=== PATIENT | male | born 1950 | race Caucasian/White ===

== ENCOUNTER 2022-04-18 10:18 | Outpatient (CLI) | payer MEDICARE, BC, SELFPAY | END 2022-04-18 10:19 | disposition home or self-care (01) | PROVIDERS: PCP Physician Assistant Medical; Visit Provider Orthopaedic Surgery | DX: Z01.818 Encounter for other preprocedural examination (principal) | CPT/HCPCS: 36415; 86850; 86900; 86901 ==

== ENCOUNTER 2022-04-20 10:26 | Day surgery (SDC) | payer MEDICARE, BC, SELFPAY ==
[2022-04-15] MEDS: CEFAZOLIN 2 GM INJ IVP (12:25)
[2022-04-20] VITALS (23 sets, daily range): BP systolic 106–137; BP diastolic 67–94; PULSE 47–76; RESP 10–18; TEMP 36.2–37.1; O2SAT 93–99; BMI 30.4
[2022-04-20] MEDS: ACETAMINOPHEN 500 MG TABLET 1000 MG PO ×3 (11:10→23:45)
[2022-04-20] MEDS: CELECOXIB 200 MG CAPSULE PO ×2 (11:10→21:06)
[2022-04-20] MEDS: OXYCODONE (CR) 10 MG TAB.ER.12H PO (11:10)
[2022-04-20] MEDS: LACTATED RINGERS 1000 ML 1,000 ML 100 ML IV ×2 (11:17→12:55)
[2022-04-20] MEDS: SODIUM CHLORIDE 0.9 % (FLUSH) 10 ML SYRINGE IVF (11:17)
--- NOTE | 2022-04-20 12:06 | SUR.PREOP ---
TIME?OUT:?1205 PT/Keila DEWEY RN/Brenda BANG MDA?VERIFICATION?OF?SURGICAL?SITE,?PROCEDURE,?AND?CONSENT OBTAINED?PRIOR?TO?INVASIVE?PROCEDURE.
[2022-04-20] MEDS: fentaNYL 100 MCG/2 ML inj IVP (12:08)
[2022-04-20] MEDS: MIDAZOLAM HCL 1 MG/ML inj IVP (12:08)
--- NOTE | 2022-04-20 12:32 | CRLHL7_ITS ---
For Patients: As a result of the Cures Act, medical imaging exams and procedure reports are released immediately into your electronic medical record. You may view this report before your referring provider. If you have questions, please contact your health care provider. Indication: Hip replacement surgery Technique: AP hip fluoroscopic images. Fluoroscopy time 43.4 seconds. Findings/Impression: Hardware from a left total hip arthroplasty is in satisfactory position. Dictated by Ottoniel Dior MD @ 04/20/2022 2:55:03 PM (Electronically Signed)
--- NOTE | 2022-04-20 13:38 | CRLHL7_ITS ---
For Patients: As a result of the Cures Act, medical imaging exams and procedure reports are released immediately into your electronic medical record. You may view this report before your referring provider. If you have questions, please contact your health care provider. Indication: Hip replacement surgery Technique: AP hip centered pelvis and lateral view left hip. Findings/Impression: Hardware from a left total hip arthroplasty is in satisfactory position. Bone alignment is normal. No sign of acute fracture. Postop changes are within normal limits. Dictated by Ottoniel Dior MD @ 04/20/2022 3:09:51 PM (Electronically Signed)
--- NOTE | 2022-04-20 13:40 | PM.ORPRC ---
Procedure Note Date of procedure: 04/20/22 Procedure: SURGEON: Remigio Calderon MD SEATING CAPTAIN: Betty Trujillo PA-C, FAUSTINO Galvan PREOPERATIVE DIAGNOSIS: Left hip osteoarthritis POSTOPERATIVE DIAGNOSIS: Left hip osteoarthritis NAME OF OPERATION: Left total hip arthroplasty IMPLANTS: 1. [employer] [place] # 58 sector ingrowth cup 2. 36 x 58 +4 neutral polyethylene 3. Actis # 9 standard collared ingrowth stem 4. 36 + 1.5 ceramic femoral head ANESTHESIA: General ESTIMATED BLOOD LOSS: 300 cc COMPLICATIONS: None SPECIMENS: None DRAINS: None PREOPERATIVE ANTIBIOTICS: Ancef 2 grams INDICATIONS: The patient is a 72-year-old with a longstanding history of severe, unrelenting left hip pain secondary to end-stage left hip osteoarthritis. Despite appropriate nonoperative management, including activity modification, use of an assist device, anti-inflammatories, [id number] pain medication, physical therapy and injections, they continue to have pain and disability. Operative intervention was offered. The risks, benefits and expected outcomes were discussed in detail. These included but were not limited to: Infection, bleeding, injury to blood vessel or nerve, venous thromboembolism. All questions were answered to their satisfaction. Use of an wet process assistant head miller was necessary throughout the case for patient positioning and safety, soft tissue retraction and closure. PROCEDURE: The patient was placed supine on the Sheldon table. General anesthesia was administered. The wet process assistant head miller made sure the patient was properly positioned. The left hip was prepped and draped in the usual sterile fashion. The image intensifier was brought in for a perfect AP pelvis and a perfect double tear drop AP view of each hip which were used for intraoperative templating with our fluoroscopic guide. An oblique incision was made 3 cm distal and 3 cm lateral to the anterior superior iliac spine. The wet process assistant head miller retracted the soft tissues to protect them. Subcutaneous dissection was taken with electrocautery to the superficial fascia. The fascia was divided in line with the incision. Blunt dissection was carried medially to the tensor fascia rosa elena and sartorius interval. Deep dissection was carried with electrocautery. The circumflex vessels were cauterized and divided. The capsule was exposed and then divided in a T-fashion, tagged with #1 Ethibond sutures. Retractors were placed in the joint, held by the wet process assistant head miller. The corkscrew was placed in the femoral head. The neck cut was made in the subcapital region. We made a second neck cut more distal. The napkin ring of bone was removed. The femoral head was removed intact. Acetabular retractors were placed, held by the wet process assistant head miller. The labrum was sharply debrided. The capsule was released. The 43 mm reamer was used to the true medial wall. We then enlarged in 2 mm increments using the image intensifier for our reamer placement. We impacted the cup which had excellent purchase. We placed the hole eliminator and the polyethylene. Attention was then turned to the proximal femur. The limb was placed in 140 degrees of external rotation, maximum extension and adduction. A significant amount of time was spent releasing the capsule to allow us to deliver the femur into the wound and complete the femoral side safely. Retractors were held by the wet process assistant head miller throughout the femoral preparation. The boxer operator and canal finder were used. Broaches were used to a stable size. The calcar reamer was used. Trial components were placed. The hip was reduced and was found to be stable with appropriate soft tissue tension. Length and offset had been nicely restored using the image intensifier and our fluoroscopic guide. Trial components were removed. The stem was impacted. We placed the femoral head. Again, the hip was reduced and was found to be stable with appropriate soft tissue tension. Length and offset had been nicely restored. The wet process assistant head miller did a three minute dilute Betadine solution soak. The wet process assistant head miller irrigated the wound with 3 liters of normal saline via pulse lavage. The wet process assistant head miller repaired the anterior capsule with a #1 Vicryl and our previously placed Ethibond sutures. The wet process assistant head miller closed the fascia over the tensor fascia rosa elena with a #1 PDO Stratafix, subcutaneous tissues with 2-0 Vicryl, skin with a running 3-0 Stratafix and glue. A dry dressing was applied by the wet process assistant head miller. Sponge and needle counts were correct x 2. The patient tolerated the procedure well; there were no apparent complications. They were awakened and extubated in the operating room, sent to the Post-Anesthesia Care Unit in satisfactory condition. PLAN: 1. The patient will be mobilized with physical therapy, weight-bearing as tolerates 2. Xarelto x 5 days then aspirin x 30 days will be used for DVT prophylaxis 3. The patient will be discharged once medically appropriate
--- NOTE | 2022-04-20 14:25 | W.ANESCHARGE ---
Anesthesia Charges Start Date/Time Anesthesia Start Date: 04/20/22 Anesthesia Start Time: 12:13 Stop Date/Time Anesthesia Stop Date: 04/20/22 Anesthesia Stop Time: 14:18 Summary Emergency: No Extremes of Age: Over 69-CPT 93630
--- NOTE | 2022-04-20 14:43 | SUR.PHASEI ---
PATIENT MEETS PACU DISCHARGE CRITERIA
--- NOTE | 2022-04-20 14:54 | P.NB_ITS ---
Nerve Block Nerve Block Date Seen: 04/20/22 Type of block requested by surgeon for post-operative analgesia: JOSE LUIS/LFCN Side: left Time out performed: Yes Verification of patient name: Yes Verification of date of : Yes Site marking: site marked Name of person performing procedure: Ciro Continuous monitoring Was continuous monitoring of O2 sat, B/P, cardiac nurse practitioner, recorded every 15 minutes?: Yes Procedure Checklist: sterile prep, needles and gloves Ultrasound guided. Images saved: Yes Medications given in 5ml increments after negative aspiration: Ropivicaine %: 0.5 mL: 30 Needle gauge: 20 Decadron (mg): 10 Precedex (mcg): 25 Patient tolerated procedure well: Yes Additional comments: Needle noted adjacent to nerve Block Charges Block Charge (with Pro Fee): Other Periph Nerve Block Use of Ultrasound Machine for Block: Yes- US Guidance/pain block
--- NOTE | 2022-04-20 14:54 | W.ANESCHARGE ---
Anesthesia Charges Start Date/Time Anesthesia Start Date: 04/20/22 Anesthesia Start Time: 12:13 Stop Date/Time Anesthesia Stop Date: 04/20/22 Anesthesia Stop Time: 14:18 Summary Emergency: No Extremes of Age: Over 69-CPT 40749
[2022-04-20] MEDS: LACTATED RINGERS 1000 ML 1,000 ML 75 ML IV (15:19)
[2022-04-20] MEDS: HYDROmorphone 0.5 mg/0.5 ml inj IVP (15:25)
[2022-04-20] MEDS: OXYCODONE 5 MG TABLET PO (17:27)
[2022-04-20] MEDS: CEFAZOLIN 2 GM in 0.9 % SODIUM CHLORIDE Mini-bag 100 ML IVPB (18:14)
[2022-04-20] MEDS: SENNOSIDES 1 TAB TABLET 2 TAB PO (21:06)
[2022-04-20] MEDS: 0.9 % SODIUM CHLORIDE 500 ML IV (21:42)
--- NOTE | 2022-04-20 23:08 | PC.NURSE ---
End of Shift: Patient pleasant and cooperative. Afebrile. Dressing to left hip C/D/I. CMS intact. Rating pain up to 5/10 and PRN Dilaudid and oxycodone each given x1. Tolerating regular diet with no nausea. Up to bathroom and chair with 1 assist, walker and gait belt. Attempted to void x2. Bladder scanned for 110 mL. 500 cc bolus hung at 2140.
--- NOTE | 2022-04-20 23:22 | P.IMCN_ITS ---
Date of Consult Patient: Yvonne Patient Consult date: 04/20/22 Requesting Physician: Orthopedics Primary Care Provider: Love Juan PA-C Consult Narrative Reason for consult: Assist with postop management of hypertension. Narrative: Shine Chowdhury is a 72 year old man with end-stage left Sagastume arthrosis who undergoes elective left total hip arthroplasty today. No obvious complications. Estimated blood loss 300 mL. Pain well controlled. Review of Systems Status of ROS: Reports: 6 or more systems reviewed and unremarkable except as noted in History and below Narrative: Denies angina, anginal equivalent, syncope, near syncope. Denies dyspnea. Denies orthopnea or paroxysmal nocturnal dyspnea. Denies palpitations. Denies cough or shortness of breath. Denies nausea vomiting. 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 Designates his brother, Melo, as his power of employee benefits attorney for health should that be required. Indicates that his girlfriend, Idalia, is the secondary power of employee benefits attorney for health. Clearly indicates he has a DNR DNI resuscitation status. He tells me he drinks a case of beer a week, usually 5-6 beers, sometimes more, on , Tuesday, Tuesday, and Tuesday of every week. Denies alcohol withdrawals. Denies use of any other street or recreational drugs. Does not use tobacco products. [facility] Medical History (Updated 04/20/22 @ 23:30 by Toney Junior MD) Alcohol abuse Benign prostatic hyperplasia Hypertension Osteoarthritis of left hip Skin cancer, basal cell Surgical History (Updated 04/20/22 @ 23:30 by Toney Junior MD) H/O transurethral resection of prostate Family History Father Colon cancer S/P triple vessel bypass Mother Heart attack Sister Tremor Brother History of total knee replacement Social History Smoking Status: Never smoker How often do you have a drink containing alcohol: 4 or more times a week Alcohol type: beer How many standard drinks containing alcohol do you have on a typical day: 5 or 6 How often do you have six or more drinks on one occasion: Weekly AUDIT-C Alcohol total score: 9 Non-prescribed substance use: denies use Non-prescribed substance use details: tylenol Caffeine: Yes (coffee, 4-6 cups/day) Meds Home Medications and Allergies Home Medications Medication Instructions Recorded Confirmed Type lisinopril 20 1 tab PO DAILY 04/19/22 04/20/22 History mg-hydrochlorothiazide 12.5 mg tablet Allergies Allergy/AdvReac Type Severity Reaction Status Date / Time No Known Allergies Allergy Unknown Verified 04/20/22 11:01 Exam Narrative: Exam Narrative: Awake, alert, oriented to self, place, time, situation. Articulate and cooperative. No acute distress. Hearing is preserved. Vision is grossly intact. Oropharynx is benign without any lesions. Lungs are clear to auscultation, without wheezing, rhonchi, or rales. No CVA tenderness. Heart tones with regular rhythm, normal S1-S2. Grade 2/6 systolic murmur left lower sternal border. No gallop or rub. Abdomen with active bowel sounds, soft, nontender. Moves all 4 extremities. Const: Vital Signs, click to edit/add: Vital Signs - 24 hr 04/20/22 11:21 04/20/22 12:05 04/20/22 12:11 Temperature 98 F Pulse Rate 68 58 L 51 L Pulse Rate [Pulse Oximeter] Respiratory Rate 18 16 16 Blood Pressure 131/84 136/83 107/67 Blood Pressure [Le ft Arm] Blood Pressure [Ri ght Arm] Pulse Oximetry 97 99 96 Oxygen Delivery Me thod Room Air Nasal Cannula Nasal Cannula Oxygen Flow Rate 2 2 04/20/22 14:14 04/20/22 14:20 04/20/22 14:25 Temperature 97.5 F L Pulse Rate 52 L 50 L 50 L Pulse Rate [Pulse Oximeter] Respiratory Rate 10 L 12 11 L Blood Pressure 137/77 122/78 116/77 Blood Pressure [Le ft Arm] Blood Pressure [Ri ght Arm] Pulse Oximetry 94 95 95 Oxygen Delivery Me thod Room Air Oxygen Flow Rate 04/20/22 14:30 04/20/22 14:35 04/20/22 14:40 Temperature 97.8 F Pulse Rate 54 L 51 L 57 L Pulse Rate [Pulse Oximeter] Respiratory Rate 12 11 L 12 Blood Pressure 126/79 132/81 134/82 Blood Pressure [Le ft Arm] Blood Pressure [Ri ght Arm] Pulse Oximetry 95 97 93 Oxygen Delivery Me thod Oxygen Flow Rate 04/20/22 14:45 04/20/22 14:50 04/20/22 15:00 Temperature 97.1 F L Pulse Rate 51 L 47 L Pulse Rate [Pulse Oximeter] Respiratory Rate 12 12 16 Blood Pressure 133/91 H 110/70 Blood Pressure [Le ft Arm] Blood Pressure [Ri ght Arm] 133/83 Pulse Oximetry 95 95 98 Oxygen Delivery Me thod Room Air Oxygen Flow Rate 04/20/22 15:15 04/20/22 15:30 04/20/22 15:45 Temperature Pulse Rate Pulse Rate [Pulse Oximeter] 59 L 50 L 61 Respiratory Rate 16 16 16 Blood Pressure Blood Pressure [Le ft Arm] 131/86 Blood Pressure [Ri ght Arm] 134/77 129/78 Pulse Oximetry 96 96 97 Oxygen Delivery Me thod Room Air Room Air Room Air Oxygen Flow Rate 04/20/22 16:00 04/20/22 16:30 04/20/22 17:00 Temperature 98.7 F Pulse Rate Pulse Rate [Pulse Oximeter] 57 L 60 62 Respiratory Rate 16 16 16 Blood Pressure Blood Pressure [Le ft Arm] Blood Pressure [Ri ght Arm] 106/92 H 122/78 126/94 H Pulse Oximetry 99 98 98 Oxygen Delivery Me thod Room Air Room Air Room Air Oxygen Flow Rate 04/20/22 18:00 04/20/22 19:00 04/20/22 20:00 Temperature 98.4 F 98.2 F Pulse Rate Pulse Rate [Pulse Oximeter] 67 74 67 Respiratory Rate 16 16 16 Blood Pressure Blood Pressure [Le ft Arm] Blood Pressure [Ri ght Arm] 120/83 112/77 115/86 Pulse Oximetry 98 97 97 Oxygen Delivery Me thod Room Air Room Air Room Air Oxygen Flow Rate 04/20/22 21:00 04/20/22 15:00 Temperature 98.3 F 97.1 F L Pulse Rate 55 L Pulse Rate [Pulse Oximeter] 76 Respiratory Rate 16 18 Blood Pressure Blood Pressure [Le ft Arm] 133/83 Blood Pressure [Ri ght Arm] 121/85 Pulse Oximetry 97 Oxygen Delivery Me thod Room Air Room Air Oxygen Flow Rate Documenting provider has reviewed patient's vital signs: yes Assessment and Plan Assessment and plan (1) Osteoarthritis of left hip: Status: Acute (2) Status post left hip replacement: Status: Acute (3) Hypertension: Status: Acute (4) Alcohol abuse: Status: Acute Plan 1. Reviewed my impression with the patient. Answered his questions to satisfaction. 2. Hold his antihypertensive for now. Consider restarting when his blood pressure is appropriate. 3. Agree with perioperative venous thromboembolism prophylaxis plans. 4. Agree with perioperative antibiotic prophylaxis. 5. Will monitor him for possible signs and symptoms of alcohol withdrawal. 6. Did discuss with patient and his girlfriend the idea that the amount of alcohol he drinks is dangerous for him. 7. Will follow with Orthopedic surgery while orthopedic surgery has him in the hospital.
[2022-04-21] MEDS: CEFAZOLIN 2 GM in 0.9 % SODIUM CHLORIDE Mini-bag 100 ML IVPB ×2 (02:14→10:01)
[2022-04-21 02:24] VITALS: BP 153/82; PULSE 62; RESP 20; TEMP 36.6; O2SAT 98
[2022-04-21] MEDS: ACETAMINOPHEN 500 MG TABLET 1000 MG PO (06:25)
[2022-04-21] MEDS: LACTATED RINGERS 1000 ML 1,000 ML 75 ML IV (06:26)
--- NOTE | 2022-04-21 06:59 | PC.NURSE ---
: SBA?with gb and walker. No c/o pain. 575?light humberto urine output this shift. (500 Bolus Given Prev Shift). Bladder scanned post void, 30mL. IV fluids running at 75mL. Dressing to hip CDI, active ice placed. VSS. Afebrile.
[2022-04-21 07:00] VITALS: BP 128/79; PULSE 65; RESP 18; TEMP 36.7; O2SAT 98
[2022-04-21 08:39] LABS: Basophils Percent Auto 0.1 % (0.0-3.0); Hematocrit 36.1 % (37.0-53.0); Hemoglobin* 12.3 gm/dL (13.5-17.5); Immature Granulocytes Abs Auto 0.03 K/uL (0.00-0.30); Lymphocytes Percent Auto 6.3 % (20-44); Mean Corpuscular HGB Conc 34 gm/dL (32-36); Mean Corpuscular Hemoglobin 32 pg (26-34); Mean Corpuscular Volume 93 fL (80-100); Monocytes Percent Auto 10.5 % (0.0-11.0); Neutrophils Percent Auto 82.9 % (42.0-72.0); Platelet Count* 225 K/uL (140-440); Red Blood Count 3.88 m/uL (4.30-5.90); White Blood Count* 13.56 K/uL (4.50-11.00)
[2022-04-21 08:49] LABS: Slide Review Reflex No
[2022-04-21 09:01] LABS: Potassium* 4.1 mmol/L (3.6-5.1); Sodium* 131 mmol/L (135-149)
[2022-04-21 09:04] LABS: Blood Urea Nitrogen* 17 mg/dL (7-30); Creatinine* 0.6 mg/dL (0.5-1.5); Est. Creatinine Clearance* 63.65; Estimated Glomerular Filt Rate 102 ml/min
[2022-04-21] MEDS: CELECOXIB 200 MG CAPSULE PO (09:05)
[2022-04-21] MEDS: SENNOSIDES 1 TAB TABLET 2 TAB PO (09:06)
[2022-04-21] MEDS: RIVAROXABAN 10 MG TABLET PO (09:06)
--- NOTE | 2022-04-21 09:54 | PM.ORPN ---
Subjective Subjective Time Seen by Provider: 07:45 Date Seen: 04/21/22 Principal diagnosis: Status post left hip replacement Interval history: Shine is comfortable this morning in his hospital bed. He will discharge to home today if physical therapy goes well. Ortho Exam Narrative Exam Narrative: Alert and oriented x3. Patient is in no acute distress. Converses without labored breathing. Hearing is grossly intact. Examination of the left hip shows mild soft tissue edema about the hip. No ecchymosis. Dressing is intact. There is no drainage. CMS is intact left lower extremity. Bilateral calves are soft and nontender. Const Vital Signs, click to edit/add: Vital Signs - 24 hr 04/20/22 11:21 04/20/22 12:05 04/20/22 12:11 Temperature 98 F Pulse Rate 68 58 L 51 L Pulse Rate [Left Dorsalis Pedis] Pulse Rate [Pulse Oximeter] Respiratory Rate 18 16 16 Blood Pressure 131/84 136/83 107/67 Blood Pressure [Left Arm] Blood Pressure [Right Arm] Pulse Oximetry 97 99 96 Oxygen Delivery Method Room Air Nasal Cannula Nasal Cannula Oxygen Flow Rate 2 2 04/20/22 14:14 04/20/22 14:20 04/20/22 14:25 Temperature 97.5 F L Pulse Rate 52 L 50 L 50 L Pulse Rate [Left Dorsalis Pedis] Pulse Rate [Pulse Oximeter] Respiratory Rate 10 L 12 11 L Blood Pressure 137/77 122/78 116/77 Blood Pressure [Left Arm] Blood Pressure [Right Arm] Pulse Oximetry 94 95 95 Oxygen Delivery Method Room Air Oxygen Flow Rate 04/20/22 14:30 04/20/22 14:35 04/20/22 14:40 Temperature 97.8 F Pulse Rate 54 L 51 L 57 L Pulse Rate [Left Dorsalis Pedis] Pulse Rate [Pulse Oximeter] Respiratory Rate 12 11 L 12 Blood Pressure 126/79 132/81 134/82 Blood Pressure [Left Arm] Blood Pressure [Right Arm] Pulse Oximetry 95 97 93 Oxygen Delivery Method Oxygen Flow Rate 04/20/22 14:45 04/20/22 14:50 04/20/22 15:00 Temperature 97.1 F L Pulse Rate 51 L 47 L Pulse Rate [Left Dorsalis Pedis] Pulse Rate [Pulse Oximeter] Respiratory Rate 12 12 16 Blood Pressure 133/91 H 110/70 Blood Pressure [Left Arm] Blood Pressure [Right Arm] 133/83 Pulse Oximetry 95 95 98 Oxygen Delivery Method Room Air Oxygen Flow Rate 04/20/22 15:15 04/20/22 15:30 04/20/22 15:45 Temperature Pulse Rate Pulse Rate [Left Dorsalis Pedis] Pulse Rate [Pulse Oximeter] 59 L 50 L 61 Respiratory Rate 16 16 16 Blood Pressure Blood Pressure [Left Arm] 131/86 Blood Pressure [Right Arm] 134/77 129/78 Pulse Oximetry 96 96 97 Oxygen Delivery Method Room Air Room Air Room Air Oxygen Flow Rate 04/20/22 16:00 04/20/22 16:30 04/20/22 17:00 Temperature 98.7 F Pulse Rate Pulse Rate [Left Dorsalis Pedis] Pulse Rate [Pulse Oximeter] 57 L 60 62 Respiratory Rate 16 16 16 Blood Pressure Blood Pressure [Left Arm] Blood Pressure [Right Arm] 106/92 H 122/78 126/94 H Pulse Oximetry 99 98 98 Oxygen Delivery Method Room Air Room Air Room Air Oxygen Flow Rate 04/20/22 18:00 04/20/22 19:00 04/20/22 20:00 Temperature 98.4 F 98.2 F Pulse Rate Pulse Rate [Left Dorsalis Pedis] Pulse Rate [Pulse Oximeter] 67 74 67 Respiratory Rate 16 16 16 Blood Pressure Blood Pressure [Left Arm] Blood Pressure [Right Arm] 120/83 112/77 115/86 Pulse Oximetry 98 97 97 Oxygen Delivery Method Room Air Room Air Room Air Oxygen Flow Rate 04/20/22 21:00 04/20/22 15:00 04/20/22 23:00 Temperature 98.3 F 97.1 F L Pulse Rate 55 L Pulse Rate [Left Dorsalis Pedis] 59 L Pulse Rate [Pulse Oximeter] 76 Respiratory Rate 16 18 16 Blood Pressure Blood Pressure [Left Arm] 133/83 Blood Pressure [Right Arm] 121/85 Pulse Oximetry 97 Oxygen Delivery Method Room Air Room Air Oxygen Flow Rate 04/20/22 23:00 04/21/22 02:24 Temperature 98 F 97.8 F Pulse Rate Pulse Rate [Left Dorsalis Pedis] Pulse Rate [Pulse Oximeter] 59 L 62 Respiratory Rate 16 20 Blood Pressure Blood Pressure [Left Arm] 121/80 153/82 H Blood Pressure [Right Arm] Pulse Oximetry 99 98 Oxygen Delivery Method Room Air Room Air Oxygen Flow Rate Assessment and Plan Assessment and plan (1) Osteoarthritis of left hip: Status: Acute (2) Status post left hip replacement: Problem details: Postop day 1 Status: Acute Assessment and Plan: Plan for discharge is today to home if they meet discharge criteria. DVT prophylaxis includes Xarelto 10 mg daily for total of 5 days, then aspirin 81 mg twice daily for 30 days, Jay stockings x1 month may remove for 1 hr per day, frequent ambulation Remove dressing 1 week. Observe wound and phone Orthopedics with any questions or concerns Use Ice on operative hip unrestricted. Return to clinic in 1 week with PA for a wound check Return to clinic in [address] Calderon Minimize narcotic use. Wean off and discontinue soon as possible. Activities as tolerated. No strenuous activity. Attend outpt PT (3) Hypertension: Status: Acute (4) Alcohol abuse: Status: Acute
--- NOTE | 2022-04-21 10:24 | PM.DS1 ---
DS: Providers Provider Date Seen: 04/21/22 Primary care physician: Love Juan PA-C Consults: 04/20/22 14:57 Consult to Occupational Therapy [CONS] Routine Comment: Reason(s) for OT Consult:: ADLs Prior to Discharge Any Restrictions?:: No Restrictions Comment: Consult to Occupational Therapy [CONS] Routine Comment: Reason(s) for OT Consult:: Evaluate and Treat Any Restrictions?:: No Restrictions Consult to Physical Therapy [CONS] Routine Comment: Ambulate in the [place] today Reason(s) for PT Consult:: Evaluate and Treat Any Restrictions?:: No Restrictions Comment: Nursing Activity Consult to Physical Therapy [CONS] Routine Comment: Ambulate in the [place] today Reason(s) for PT Consult:: THR TX Protocol POD#0 Any Restrictions?:: No Restrictions Comment: Nursing Activity: See nursing activity order Consult to Physician [CONS] Routine Comment: Consulting Provider: Hospitalists Has provider been notified: No Consult to Staff Veterinarian [CONS] Routine Comment: Reason for Consult:: Discharge Planning Needs Consult to Staff Veterinarian [CONS] Routine Comment: Reason for Consult:: Discharge Planning Needs Attending Physician on discharge: Remigio Calderon MD Date of Discharge: 04/21/22 DS: Diagnosis Discharge Diagnosis (1) Status post left hip replacement: Status: Acute Problem details: Postop day 1 (2) Osteoarthritis of left hip: Status: Acute (3) Hypertension: Status: Acute (4) Hyponatremia: Status: Acute DS: Summary Hospital Course Hospital Course: 72-year-old male admitted to the hospital for left total hip arthroplasty. Procedures performed on the day of admission by Dr. Calderon. There were no operative complications. Postoperatively he has done very well. Pain has been well controlled. He has done well with physical therapy. Status at Discharge Functional status at discharge: uses cane/walker Time Spent with Patient Time attestation: Total time spent providing and/or coordinating discharge services: Exam Narrative: Exam Narrative: He is alert and appears in no distress. Speech is normal. Breathing is unlabored. No tremor. Lower extremities without edema. Intact pedal pulses. Intact strength in both feet and ankles. Const: Vital Signs, click to edit/add: Vital Signs - 24 hr 04/20/22 11:21 04/20/22 12:05 04/20/22 12:11 Temperature 98 F Pulse Rate 68 58 L 51 L Pulse Rate [Left D orsalis Pedis] Pulse Rate [Pulse Oximeter] Respiratory Rate 18 16 16 Blood Pressure 131/84 136/83 107/67 Blood Pressure [Le ft Arm] Blood Pressure [Ri ght Arm] Pulse Oximetry 97 99 96 Oxygen Delivery Me thod Room Air Nasal Cannula Nasal Cannula Oxygen Flow Rate 2 2 04/20/22 14:14 04/20/22 14:20 04/20/22 14:25 Temperature 97.5 F L Pulse Rate 52 L 50 L 50 L Pulse Rate [Left D orsalis Pedis] Pulse Rate [Pulse Oximeter] Respiratory Rate 10 L 12 11 L Blood Pressure 137/77 122/78 116/77 Blood Pressure [Le ft Arm] Blood Pressure [Ri ght Arm] Pulse Oximetry 94 95 95 Oxygen Delivery Me thod Room Air Oxygen Flow Rate 04/20/22 14:30 04/20/22 14:35 04/20/22 14:40 Temperature 97.8 F Pulse Rate 54 L 51 L 57 L Pulse Rate [Left D orsalis Pedis] Pulse Rate [Pulse Oximeter] Respiratory Rate 12 11 L 12 Blood Pressure 126/79 132/81 134/82 Blood Pressure [Le ft Arm] Blood Pressure [Ri ght Arm] Pulse Oximetry 95 97 93 Oxygen Delivery Me thod Oxygen Flow Rate 04/20/22 14:45 04/20/22 14:50 04/20/22 15:00 Temperature 97.1 F L Pulse Rate 51 L 47 L Pulse Rate [Left D orsalis Pedis] Pulse Rate [Pulse Oximeter] Respiratory Rate 12 12 16 Blood Pressure 133/91 H 110/70 Blood Pressure [Le ft Arm] Blood Pressure [Ri ght Arm] 133/83 Pulse Oximetry 95 95 98 Oxygen Delivery Me thod Room Air Oxygen Flow Rate 04/20/22 15:15 04/20/22 15:30 04/20/22 15:45 Temperature Pulse Rate Pulse Rate [Left D orsalis Pedis] Pulse Rate [Pulse Oximeter] 59 L 50 L 61 Respiratory Rate 16 16 16 Blood Pressure Blood Pressure [Le ft Arm] 131/86 Blood Pressure [Ri ght Arm] 134/77 129/78 Pulse Oximetry 96 96 97 Oxygen Delivery Me thod Room Air Room Air Room Air Oxygen Flow Rate 04/20/22 16:00 04/20/22 16:30 04/20/22 17:00 Temperature 98.7 F Pulse Rate Pulse Rate [Left D orsalis Pedis] Pulse Rate [Pulse Oximeter] 57 L 60 62 Respiratory Rate 16 16 16 Blood Pressure Blood Pressure [Le ft Arm] Blood Pressure [Ri ght Arm] 106/92 H 122/78 126/94 H Pulse Oximetry 99 98 98 Oxygen Delivery Me thod Room Air Room Air Room Air Oxygen Flow Rate 04/20/22 18:00 04/20/22 19:00 04/20/22 20:00 Temperature 98.4 F 98.2 F Pulse Rate Pulse Rate [Left D orsalis Pedis] Pulse Rate [Pulse Oximeter] 67 74 67 Respiratory Rate 16 16 16 Blood Pressure Blood Pressure [Le ft Arm] Blood Pressure [Ri ght Arm] 120/83 112/77 115/86 Pulse Oximetry 98 97 97 Oxygen Delivery Me thod Room Air Room Air Room Air Oxygen Flow Rate 04/20/22 21:00 04/20/22 15:00 04/20/22 23:00 Temperature 98.3 F 97.1 F L Pulse Rate 55 L Pulse Rate [Left D orsalis Pedis] 59 L Pulse Rate [Pulse Oximeter] 76 Respiratory Rate 16 18 16 Blood Pressure Blood Pressure [Le ft Arm] 133/83 Blood Pressure [Ri ght Arm] 121/85 Pulse Oximetry 97 Oxygen Delivery Nm thod Room Air Room Air Oxygen Flow Rate 04/20/22 23:00 04/21/22 02:24 04/21/22 07:00 Temperature 98 F 97.8 F Pulse Rate Pulse Rate [Left D orsalis Pedis] Pulse Rate [Pulse Oximeter] 59 L 62 65 Respiratory Rate 16 20 18 Blood Pressure Blood Pressure [Le ft Arm] 121/80 153/82 H Blood Pressure [Ri ght Arm] Pulse Oximetry 99 98 Oxygen Delivery Me thod Room Air Room Air Oxygen Flow Rate 04/21/22 07:00 Temperature 98.1 F Pulse Rate Pulse Rate [Left D orsalis Pedis] Pulse Rate [Pulse Oximeter] 65 Respiratory Rate 18 Blood Pressure Blood Pressure [Le ft Arm] 128/79 Blood Pressure [Ri ght Arm] Pulse Oximetry 98 Oxygen Delivery Me thod Room Air Oxygen Flow Rate Documenting provider has reviewed patient's vital signs: yes DS: Data Data Completed and Pending Labs on day of discharge: Labs from last 24 hours 04/21/22 04/21/22 08:23 08:23 WBC 13.56 H RBC 3.88 L Hgb 12.3 L Hct 36.1 L MCV 93 MCH 32 MCHC 34 RDW Coeff of Patrice 12.0 Plt Count 225 Neut % (Auto) 82.9 H Lymph % (Auto) 6.3 L [place] % (Auto) 10.5 Eos % (Auto) 0.0 Baso % (Auto) 0.1 Neut # (Auto) 11.20 H Lymph # (Auto) 0.90 [place] # (Auto) 1.40 H Eos # (Auto) 0.00 Baso # (Auto) 0.00 Abs Immat Gran (auto) 0.03 Sodium 131 L Potassium 4.1 BUN 17 Creatinine 0.6 Estimated Creat Clear 63.65 Estimated GFR 102 Discharge Plan Discharge Disposition: Home, Self-Care Discharging Surgeon: Remigio Calderon Follow-Up Appointment: 1 week with orthopedics Prescriptions: New acetaminophen 500 mg Tablet 500 - 1,000 mg PO Q6H PRNQty: 100 0RF oxycodone 5 mg Tablet 2.5 - 5 mg PO Q4-6H MDD 6 tabs per day PRN (Reason: Pain) Qty: 42 0RF Rx Instructions: minimize and discontinue as soon as possible Xarelto 10 mg Tablet 10 mg PO DAILY 4 Days Qty: 4 0RF Rx Instructions: take this medication daily for 4 days, then Aspirin 81mg twice daily for 30 days aspirin 81 mg tablet,chewable 81 mg PO BID 30 Days Qty: 60 0RF sennosides [Senna Lax] 8.6 mg Tablet 2 tab PO BID PRNQty: 100 0RF Continued lisinopril-hydrochlorothiazide 20-12.5 mg tablet 1 tab PO DAILY Activity Level: Activity as Tolerated and No strenuous activity Activity Detail: Keep dressing on for 1 week. Dressing is waterproof. May shower. Surgical glue covers the wound. Attend outpatient physical therapy if scheduled. Ice operative extremity without restriction. Wear compression stockings for 1 month post surgery. May remove for 1 hour per day. Do not drive while taking narcotic pain medication. Do not drink alcohol while taking narcotic pain medication. May drive when safe to do so and have full function of the extremities, this may take 6 weeks or more. Notify Orthopedics with any questions or concerns. ([phone]) Patient Instructions: Acetaminophen (By mouth), Aspirin (By mouth), Oxycodone, Rapid Release (By mouth), Rivaroxaban (By mouth) (Xarelto, Xarelto Starter Pack), Senna (By mouth), Anterior Hip Replacement (DC) Follow-up: Angelika, Physical Therapy [Other] - 04/27/22 1:00 pm Tisha Noriega PA-C [Physician Disability Insurance Hearing Officer] - 04/29/22 11:00 am ([facility] - Schedule 6 week surgeon appointment at this time. ) Love Juan PA-C [Primary Care Provider] - Discharge Orders: Discharge Order (Routine); Ordered 04/21/22 Ordered By: Fabio Weinberg
--- NOTE | 2022-04-21 12:19 | PC.NURSE ---
?SBA?with gait belt and walker. Pt. denies any pain. Pt. ambulated w/therapy in hallway and tolerated well. Dressing to hip CDI, active ice placed. VSS. Afebrile this shift. Pt. was discharged at 1115 accompanied by partner. Belongings list and discharge instructions reviewed and signed, no further questions about discharge. IV removed and intact.
== END 2022-04-21 11:15 | disposition home or self-care (01) ==
LOC: OR 14:48 → MEDSURG 15:01
PROVIDERS: PCP Physician Assistant Medical; Visit Provider Orthopaedic Surgery
PROC: (CPT 27130; principal; 2022-04-20 12:30)
DX: M16.12 Unilateral primary osteoarthritis, left hip (principal); F10.10 Alcohol abuse, uncomplicated; I10 Essential (primary) hypertension
CPT/HCPCS: 27130; 01214; 36415; 51798; 64450; 73501; 76000; 76942; 82565; 84132; 84295; 84520; 85025; 97116; 97161; 97165; 97530; 99100; A9270; C1776; J0330; J0690; J1100; J1170; J2250; J2370; J2405; J2704; J2710; J2795; J3010; J7120

== ENCOUNTER 2022-04-24 09:28 | Outpatient (CLI) | payer MEDICARE, BC, SELFPAY | END 2022-04-24 09:29 | disposition home or self-care (01) | LOC: AMB 05-01 20:04 | PROVIDERS: PCP Physician Assistant Medical; Visit Provider Family Medicine | DX: R55 Syncope and collapse (principal) | CPT/HCPCS: A0425; A0427 ==

== ENCOUNTER 2022-04-24 10:11 | Emergency (ER) | payer MEDICARE, BC, SELFPAY ==
[2022-04-24 10:16] VITALS: BP 124/80; PULSE 55; RESP 18; TEMP 36; O2SAT 98; BMI 31.3
[2022-04-24 11:00] VITALS: BP 130/79; PULSE 60; RESP 15; O2SAT 98
--- NOTE | 2022-04-24 11:04 | CRLHL7_ITS ---
For Patients: As a result of the Cures Act, medical imaging exams and procedure reports are released immediately into your electronic medical record. You may view this report before your referring provider. If you have questions, please contact your health care provider. INDICATION: Syncope; status post total hip arthroplasty. Comparison: None. TECHNIQUE: CT chest with intravenous contrast; coronal and sagittal reformats. FINDINGS: Dilated ascending thoracic aorta measuring 4.6 cm in diameter. Descending thoracic aorta is measuring 3 cm. No evidence of pulmonary thromboemboli. Normal size cardiac silhouette without any pericardial effusion. No evidence of pleural effusion or chest wall pathology. Deformity right upper rib cage; rule out old healed fractures. No abnormal intra pulmonary nodular densities are identified. Limited CT through the upper abdomen is unremarkable. IMPRESSION: 1. No evidence of pulmonary thromboemboli. 2. Dilated ascending thoracic aorta measuring 4.6 cm in diameter. Please note that all CT scans at this facility use dose modulation, iterative reconstruction, and/or weight-based dosing when appropriate to reduce radiation dose to as low as reasonably achievable. Dictated by Jermaine Corbett MD @ 04/24/2022 12:14:59 PM (Electronically Signed)
--- NOTE | 2022-04-24 11:07 | ED.GENADULT ---
HPI - General Adult General Time Seen by Provider: 10:55 Date Seen: 04/24/22 Chief complaint: Syncope/Fainted Stated complaint: Syncopal Episode Time Seen by Provider: 04/24/22 10:54 Source: patient, family, EMS and RN notes reviewed Mode of arrival: EMS Limitations: no limitations History of Present Illness HPI narrative: Shine is a 72-year-old male whom had left total hip arthroplasty on that had a syncopal episode this morning. Shine was up shaving at the sink and started feeling faint or lightheaded. He tried to finish she and realizes he probably should just sat down. He had a wheelchair that he sat down and called his . He did reportedly completely pass out, his witnessed this. There was no seizure activity. He denies having any chest pain, respiratory symptoms, shortness of breath before or after. No headache, no visual changes. He is not having any significant pain in his hip, states he is only using Tylenol for pain management. He admittedly has not ate or drank anything this morning. He has not been febrile. On questioning, he has passed out once before at the end of her wrist surgery. He states they did a block on his arm and he had surgery done on the arm. When he went to sit up after that surgery he felt faint and did pass out. His surgery was Tuesday of this week, today is Tuesday. His did later recollect to that the bathroom was quite warm and hot. Related Data Home Medications Medication Instructions Recorded Confirmed lisinopril 20 1 tab PO DAILY 04/19/22 04/20/22 mg-hydrochlorothiazide 12.5 mg tablet Previous Rx's Medication Instructions Recorded acetaminophen 500 mg tablet 500 - 1,000 mg PO Q6H PRN #100 tabs 04/21/22 aspirin 81 mg chewable tablet 81 mg PO BID 30 days #60 tabs 04/21/22 oxycodone 5 mg tablet 2.5 - 5 mg PO Q4-6H PRN Pain #42 04/21/22 tabs rivaroxaban 10 mg tablet (Xarelto) 10 mg PO DAILY 4 days #4 tabs 04/21/22 sennosides 8.6 mg tablet (Senna 2 tab PO BID PRN #100 tabs 04/21/22 Lax) Allergies Allergy/AdvReac Type Severity Reaction Status Date / Time No Known Allergies Allergy Unknown Verified 04/24/22 11:42 Review of Systems Status of ROS: Reports: 10 or more systems reviewed and unremarkable except as noted in History and below [facility] Medical History (Updated 04/24/22 @ 13:16 by Melany Kaur MD) Alcohol abuse Benign prostatic hyperplasia Hypertension Osteoarthritis of left hip Skin cancer, basal cell Surgical History (Updated 04/21/22 @ 09:56 by Betty Arzate PA-C) H/O transurethral resection of prostate Family History Father Colon cancer S/P triple vessel bypass Mother Heart attack Sister Tremor Brother History of total knee replacement Social History Smoking Status: Never smoker How often do you have a drink containing alcohol: 4 or more times a week Alcohol type: beer How many standard drinks containing alcohol do you have on a typical day: 5 or 6 How often do you have six or more drinks on one occasion: Weekly AUDIT-C Alcohol total score: 9 Non-prescribed substance use: denies use Non-prescribed substance use details: tylenol Caffeine: Yes (coffee, 4-6 cups/day) Exam Const: Vital Signs, click to edit/add: Vital Signs - 24 hr 04/24/22 10:16 04/24/22 11:00 04/24/22 12:00 Temperature 96.8 F L Pulse Rate [Pulse Oximeter] 55 L 60 62 Respiratory Rate 18 15 18 Blood Pressure [Le ft Upper Arm] 124/80 130/79 139/82 Pulse Oximetry 98 98 97 Oxygen Delivery Me thod Room Air Room Air Documenting provider has reviewed patient's vital signs: yes Common normals: no apparent distress, average body habitus, oriented x3, no limitations, healthy appearing and alert General appearance: cooperative, comfortable and well kempt HENMT: Common normals: normocephalic, head/scalp atraumatic, hearing grossly normal bilaterally, external ears normal, external nose normal, nasal mucous membranes and turbinates normal, moist oral mucous membranes, oropharynx normal, dentition normal and gingiva normal Head and scalp: normocephalic and atraumatic Nose: external nose normal and nasal mucous membranes and turbinates normal External ear: external ears normal Eye: Common normals: PERRL, EOMs intact bilaterally, conjunctivae normal and no scleral icterus Conjunctiva: conjunctiva(e) normal Pupil: PERRL Neck & C-Spine: Common normals: full ROM, no lymphadenopathy, supple, no meningeal signs, no JVD and thyroid normal Thyroid: thyroid normal Chest: Common normals: inspection of chest normal and palpation of chest normal Resp: Common normals: normal respiratory effort, no retractions, no use of accessory muscles and clear to auscultation bilaterally Auscultation: clear to auscultation bilaterally Cardio: Common normals: no JVD, regular rate, regular rhythm, S1 normal heart sound, S2 normal heart sound, no gallops, no clicks and no murmurs Rate: regular rate Rhythm: regular rhythm Heart sounds: S1 normal and S2 normal GI: Common normals: Normal to inspection, nondistended, normoactive bowel sounds present, soft to palpation, non-tender, no hepatosplenomegaly, no masses and no bruits Palpation: soft and no hepatosplenomegaly Extremity: Other: Has Jay hose on bilaterally, below the knee. No calf tenderness or swelling on either side. The bandage over his left lateral hip areas clean dry and intact. This was not removed. There is no erythema or skin abnormality extending outside of the bandage. Neuro: [place] Coma Scale: document GCS findings Ellsworth coma scale eye opening: Spontaneous (4) [place] coma scale verbal response: Orientated (5) [place] coma scale motor response: Obey commands (6) Liz coma scale total score: 15 Common normals: oriented x3, CN's II-XII intact bilaterally, moves all extremities, no focal motor deficits and no sensory deficits noted Sensorium/orientation: alert Meningeal signs: no meningeal signs Speech: speech normal Psych: Appearance: well kempt Course Course Hospital Course: We will have him on cardiac monitoring and pulse oximetry to rule out any arrhythmia or hypoxia while here. Certainly sounds like this was syncope and not seizure. Etiology would include thromboembolic disease. There certainly does not seem to be any evidence to suggest that this was HAT FINISHER. We have discussed doing chest CT PE protocol or not. They have decided on proceeding with chest CT PE protocol. We will do appropriate lab work as well. Infectious etiology does not seem to be at play here either but will monitor him while here. Sounds like this certainly may have just been orthostatic changes. Does have a history of hyponatremia and will ensure that his sodium is stable. This time he is hemodynamically stable and will monitor him closely. Vital Signs Vital signs: Initial Vital Signs Temperature 96.8 F L 04/24/22 10:16 Temperature Source Temporal Artery Scan 04/24/22 10:16 Pulse Rate 55 L 04/24/22 10:16 Respiratory Rate 18 04/24/22 10:16 Blood Pressure 124/80 04/24/22 10:16 Blood Pressure Mean 94 04/24/22 10:16 Blood Pressure Position Supine 04/24/22 10:16 Pulse Oximetry 98 04/24/22 10:16 Oxygen Delivery Method 04/24/22 10:16 Vital Signs Temperature 96.8 F L 04/24/22 10:16 Pulse Rate 55 L 04/24/22 10:16 Respiratory Rate 18 04/24/22 10:16 Blood Pressure 124/80 04/24/22 10:16 Pulse Oximetry 98 04/24/22 10:16 Oxygen Delivery Method 04/24/22 10:16 Temperature 96.8 F L 04/24/22 10:16 Pulse Rate 62 04/24/22 12:00 Respiratory Rate 18 04/24/22 12:00 Blood Pressure 139/82 04/24/22 12:00 Pulse Oximetry 97 04/24/22 12:00 Oxygen Delivery Method 04/24/22 11:00 Medical Decision Making Lab Data Lab results reviewed: Yes I reviewed the patient's lab results Labs: Lab Results 04/24/22 04/24/22 04/24/22 Range/Units 11:15 11:15 11:15 WBC 9.01 (4.50-11.00) K/uL RBC 4.39 (4.30-5.90) m/uL Hgb 13.7 (13.5-17.5) gm/dL Hct 41.2 (37.0-53.0) % MCV 94 (80-100) fL MCH 31 (26-34) pg MCHC 33 (32-36) gm/dL RDW Coeff of Patrice 12.0 (11.5-15.5) % Plt Count 253 (140-440) K/uL Neut % (Auto) 79.2 H (42.0-72.0) % Lymph % (Auto) 10.8 L (20-44) % [place] % (Auto) 8.2 (0.0-11.0) % Eos % (Auto) 0.7 (0.0-7.0) % Baso % (Auto) 0.4 (0.0-3.0) % Neut # (Auto) 7.10 H (1.7-7.0) K/uL Lymph # (Auto) 1.00 (0.90-2.90) K/uL [place] # (Auto) 0.70 (0.00-0.90) K/UL Eos # (Auto) 0.06 (0.00-0.50) K/uL Baso # (Auto) 0.04 (0.00-0.30) K/uL Abs Immat Gran (auto) 0.06 (0.00-0.30) K/uL D-Dimer Quant (PE/DVT) 2.35 H (0.00-0.50) ug/ml Sodium 135 (135-149) mmol/L Potassium 4.7 (3.6-5.1) mmol/L Chloride 99 (96-114) mmol/L Carbon Dioxide 30 (20-32) mmol/L BUN 18 (7-30) mg/dL Creatinine 0.7 (0.5-1.5) mg/dL Estimated Creat Clear 59.37 Estimated GFR 97 ml/min Glucose 138 H (60-115) mg/dL Lactate (0.5-1.9) mmol/L Calcium 9.1 (8.4-10.6) mg/dL Total Bilirubin 0.4 (0.1-1.5) mg/dL AST 28 (12-35) U/L ALT 17 (4-50) U/L Alkaline Phosphatase 72 (40-150) U/L Troponin I < 0.01 L (0.01-0.04) ng/mL C-Reactive Protein 8.1 H (0.5-1.0) mg/dL Total Protein 7.1 (6.0-8.3) g/dL Albumin 3.8 (3.3-5.0) g/dL POC Troponin I (0.01-0.04) ng/ml 04/24/22 04/24/22 Range/Units 11:15 12:47 WBC (4.50-11.00) K/uL RBC (4.30-5.90) m/uL Hgb (13.5-17.5) gm/dL Hct (37.0-53.0) % MCV (80-100) fL MCH (26-34) pg MCHC (32-36) gm/dL RDW Coeff of Patrice (11.5-15.5) % Plt Count (140-440) K/uL Neut % (Auto) (42.0-72.0) % Lymph % (Auto) (20-44) % [place] % (Auto) (0.0-11.0) % Eos % (Auto) (0.0-7.0) % Baso % (Auto) (0.0-3.0) % Neut # (Auto) (1.7-7.0) K/uL Lymph # (Auto) (0.90-2.90) K/uL [place] # (Auto) (0.00-0.90) K/UL Eos # (Auto) (0.00-0.50) K/uL Baso # (Auto) (0.00-0.30) K/uL Abs Immat Gran (auto) (0.00-0.30) K/uL D-Dimer Quant (PE/DVT) (0.00-0.50) ug/ml Sodium (135-149) mmol/L Potassium (3.6-5.1) mmol/L Chloride (96-114) mmol/L Carbon Dioxide (20-32) mmol/L BUN (7-30) mg/dL Creatinine (0.5-1.5) mg/dL Estimated Creat Clear Estimated GFR ml/min Glucose (60-115) mg/dL Lactate 1.3 (0.5-1.9) mmol/L Calcium (8.4-10.6) mg/dL Total Bilirubin (0.1-1.5) mg/dL AST (12-35) U/L ALT (4-50) U/L Alkaline Phosphatase (40-150) U/L Troponin I (0.01-0.04) ng/mL C-Reactive Protein (0.5-1.0) mg/dL Total Protein (6.0-8.3) g/dL Albumin (3.3-5.0) g/dL POC Troponin I 0.00 L (0.01-0.04) ng/ml Imaging Data CT scan - chest: Attestation: I have reviewed the pertinent imaging results. Radiologist's impression: Patient: MARIPOSA LU Facility:?[facility] Patient ID:?[id number] Site Patient ID:?[id number]. Site :?[id number] Study:?CT Chest Angio PE-04/24/2022 11:40:52 AM Ordering Physician:Jose Mosley Final Report: INDICATION: Syncope; status post total hip arthroplasty. Comparison: None. TECHNIQUE: CT chest with intravenous contrast; coronal and sagittal reformats. FINDINGS: Dilated ascending thoracic aorta measuring 4.6 cm in diameter. Descending thoracic aorta is measuring 3 cm. No evidence of pulmonary thromboemboli. Normal size cardiac silhouette without any pericardial effusion. No evidence of pleural effusion or chest wall pathology. Deformity right upper rib cage; rule out old healed fractures. No abnormal intra pulmonary nodular densities are identified. Limited CT through the upper abdomen is unremarkable. IMPRESSION: 1. No evidence of pulmonary thromboemboli. 2. Dilated ascending thoracic aorta measuring 4.6 cm in diameter. Please note that all CT scans at this facility use dose modulation, iterative reconstruction, and/or weight-based dosing when appropriate to reduce radiation dose to as low as reasonably achievable. Dictated by Jermaine Corbett MD @ 04/24/2022 12:14:59 PM (Electronic Signature) ECG Data Attestation: I personally reviewed and interpreted this ECG as follows: (Sinus rhythm, 60 beats per minute, no ischemic change.) Prior ECG tracings: not available for review Critical Care Time Critical Care Time Critical Care Time: No Discharge Plan Discharge Clinical Impression: Syncope Patient Disposition: Home, Self-Care Condition: Stable Instructions: Syncope (ED) Additional Instructions: At this time, it would appear that the syncope is from vasovagal causes. However, should you have recurrent episodes we do need you to return to the ED for further evaluation. Make position changes slowly, stay adequately hydrated. No changes in recommendations as far as your recent surgery, continue to follow the postoperative recommendations. It is also recommended that you eat regular meals. Prescriptions: No Action lisinopril-hydrochlorothiazide 20-12.5 mg tablet 1 tab PO DAILY acetaminophen 500 mg Tablet 500 - 1,000 mg PO Q6H PRNQty: 100 0RF oxycodone 5 mg Tablet 2.5 - 5 mg PO Q4-6H MDD 6 tabs per day PRN (Reason: Pain) Qty: 42 0RF Rx Instructions: minimize and discontinue as soon as possible Xarelto 10 mg Tablet 10 mg PO DAILY 4 Days Qty: 4 0RF Rx Instructions: take this medication daily for 4 days, then Aspirin 81mg twice daily for 30 days aspirin 81 mg tablet,chewable 81 mg PO BID 30 Days Qty: 60 0RF sennosides [Senna Lax] 8.6 mg Tablet 2 tab PO BID PRNQty: 100 0RF Follow Up/Referrals: Love Juan PA-C [Primary Care Provider] - [facility] Instructions
[2022-04-24 11:22] LABS: Lactate* 1.3 mmol/L (0.5-1.9)
[2022-04-24 11:25] LABS: Basophils Absolute Auto 0.04 K/uL (0.00-0.30); Basophils Percent Auto 0.4 % (0.0-3.0); Eosinophils Absolute Auto 0.06 K/uL (0.00-0.50); Eosinophils Percent Auto 0.7 % (0.0-7.0); Hematocrit 41.2 % (37.0-53.0); Hemoglobin* 13.7 gm/dL (13.5-17.5); Immature Granulocytes Abs Auto 0.06 K/uL (0.00-0.30); Lymphocytes Percent Auto 10.8 % (20-44); Mean Corpuscular HGB Conc 33 gm/dL (32-36); Mean Corpuscular Hemoglobin 31 pg (26-34); Mean Corpuscular Volume 94 fL (80-100); Monocytes Percent Auto 8.2 % (0.0-11.0); Neutrophils Percent Auto 79.2 % (42.0-72.0); Platelet Count* 253 K/uL (140-440); Red Blood Count 4.39 m/uL (4.30-5.90); White Blood Count* 9.01 K/uL (4.50-11.00)
[2022-04-24 11:26] LABS: Slide Review Reflex No
[2022-04-24 11:39] LABS: Albumin* 3.8 g/dL (3.3-5.0); Chloride* 99 mmol/L (96-114)
[2022-04-24 11:40] LABS: Potassium* 4.7 mmol/L (3.6-5.1); Sodium* 135 mmol/L (135-149)
[2022-04-24 11:42] LABS: Alkaline Phosphatase* 72 U/L (40-150); Aspartate Amino Transferase* 28 U/L (12-35); Bilirubin Total* 0.4 mg/dL (0.1-1.5); Carbon Dioxide* 30 mmol/L (20-32); Creatinine* 0.7 mg/dL (0.5-1.5); Est. Creatinine Clearance* 59.37; Estimated Glomerular Filt Rate 97 ml/min; Total Protein* 7.1 g/dL (6.0-8.3)
[2022-04-24 11:43] LABS: Alanine Aminotransferase* 17 U/L (4-50); Blood Urea Nitrogen* 18 mg/dL (7-30); Calcium* 9.1 mg/dL (8.4-10.6); Glucose* 138 mg/dL (60-115)
[2022-04-24 11:45] LABS: C Reactive Protein* 8.1 mg/dL (0.5-1.0)
[2022-04-24 11:54] LABS: Troponin I* < 0.01 ng/mL (0.01-0.04)
[2022-04-24 12:00] VITALS: BP 139/82; PULSE 62; RESP 18; O2SAT 97
[2022-04-24 12:03] LABS: D Dimer Quantitative* 2.35 ug/ml (0.00-0.50)
[2022-04-24 13:00] VITALS: BP 127/76; PULSE 60; RESP 16; O2SAT 93
[2022-04-24 13:30] VITALS: BP 127/81; PULSE 60; RESP 19; O2SAT 96
== END 2022-04-24 13:43 | disposition home or self-care (01) ==
PROVIDERS: Emergency Provider Family Medicine; PCP Physician Assistant Medical
DX: R55 Syncope and collapse (principal)
CPT/HCPCS: 36415; 71260; 80053; 83605; 84484; 85025; 85379; 86140; 93005; 99284; Q9967

== ENCOUNTER 2022-05-11 13:00 | Outpatient (RCR) | payer MEDICARE, BC, SELFPAY ==
--- NOTE | 2022-04-13 14:42 | PT.OPEX ---
PT [place] Outpatient Eval PT [facility] Outpatient Eval Start: 04/13/22 14:17 Freq: Status: Active Protocol: Document 04/13/22 14:17 SHIVANI (Rec: 04/13/22 14:33 SHIVANI [id number]) E-signed By Ketty Gaming DPT Physical Therapy Outpatient Evaluation Insurance Information Recert Due Date 07/12/22 Insurance Name Medicare B,Blue Cross/Blue Shield Medical Diagnosis L hip OA, scheduled for L ENRIQUE 04/20/22 Treating Diagnosis L hip pain, impaired L hip ROM , impaired L hip/LE mobility/ strength, limited tolerance for extended standing/walking, limping/antalgic gait Subjective Subjective Patient c/o L hip pain for the last year. Reports having prior injection to L hip without much relief. Ongoing pain has led up to L ENRIQUE which is scheduled for next week . He denies any prior total joint replacement surgeries. Patient does not use an AD. He reports activities have been limited some by pain/discomfort of L hip. Patient lives in a split entry home. 2 stairs or a ramp to enter. Once inside 7 stairs to upper main level. Patient has help at home, she will be able to assist as needed after surgery. He is able to borrow FWW, cane, and other equipment from a friend that's had a ENRIQUE. Patient is able to stay on upper main level once inside. There is a walk in shower with a shower seat. Date of Last Physician Visit 02/17/22 Date of Surgery (If applicable) 04/20/22 Current Work Status Retired Assessment Assessment/Impression Patient is a 72 year old male with L hip pain, impaired L hip ROM, impaired L hip/LE mobility/strength, limited tolerance for extended standing/walking, limping/ antalgic gait. He is scheduled for L ENRIQUE 04/20/22. Patient referred to PT for one pre-op visit and then for post op rehab. He c/o moderate L hip pain that impacts some of his daily activities. Reports living in a split entry home with 2 stairs (no railing) or a ramp to enter. Patient has 7 stairs once inside with one railing the full stairway and second railing for partial stairway to get to the upper main level. Once on the main level, patient is able to stay there. He has help at home, she can assist as needed. 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 Patient seen in PT today for pre-op session to provide education/information on upcoming ENRIQUE surgery, safety information/HO, equipment instruction including use of FWW, and instruction in ENRIQUE exercises. Handouts issued for exercises , patient to perform them leading up to surgery. Reviewed PT/OT plan during hospital stay and patient is scheduled for OP PT post op. Patient would benefit from skilled PT for pain/sx management, improved hip ROM, improved hip/LE mobility/ strength, improved gait, balance/proprioception training, and establishment of HEP. Plan of Care Physical Therapy Goals 1. Patient will be educated in ENRIQUE pre/post-op safety, mobility, and exercises with HOs provided within one visit with patient returning to PT for post op treatment after ENRIQUE surgery on 04/20/22. PT goals will be updated to ENRIQUE rehab goals when patient returns post op. Coordination/Communication With Referral Source Treatment Plan/Direct Interventions Gait Training,Manual Therapy, Therapeutic Exercises Frequency/Duration 1x/week Patient Will Be Discharged From Therapy Completion of LTG(s),Skills Plateau,Independent w/HEP, Independently Progressing Evaluation Billing Untimed Code Treatment Minutes 35 Complexity Moderate Certification Information Initial Certification Date 04/13/22 Ending Certification Date 07/12/22
== END 2022-07-05 14:34 | disposition home or self-care (01) ==
PROVIDERS: PCP Orthopaedic Surgery; Visit Provider Orthopaedic Surgery
DX: Z96.642 Presence of left artificial hip joint (principal); Z51.89 Encounter for other specified aftercare
CPT/HCPCS: 97110; 97162; 97164

== ENCOUNTER 2022-09-16 07:59 | Outpatient (CLI) | payer MEDICARE, BC, SELFPAY ==
--- NOTE | 2022-09-16 08:15 | MR_ITS ---
[address] [address] Phone:?[phone] Fax:?[phone] Referring Physician Information: Avinash Wade [address] [facility] [address] Phone:?[phone] Fax:?[phone] Patient:?Shine Chowdhury D.O.B:?1950 Sex:?Male Phone:?[phone] [facility] MRN:?[id number] Exam Date:?09/16/2022 ? EXAM: MRI EXAMINATION OF THE RIGHT KNEE CLINICAL INFORMATION: Right knee pain. No history of surgery to this area. Evaluate lateral meniscal tear. TECHNICAL INFORMATION: Coronal PD and STIR. Sagittal PD and PD fat saturation. Axial PD and T2 fat saturation images acquired. Comparison is made with February 13, 2016. INTERPRETATION: Bones: Localized minimal subchondral edema signal involves the medial tibial plateau. Patchy subchondral cystic changes involving the patellofemoral compartment. No occult fracture or AVN. No other abnormal bone marrow edema pattern is identified. Ligaments and tendons: The medial collateral ligament is intact, without acute sprain or tear. The iliotibial band, fibular collateral ligament, biceps femoris tendon and popliteus tendon all are intact. The anterior cruciate ligament is intact without acute sprain or tear. 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 There are chronic ossific fragments associated with the midportion of the ligament. Extensor Mechanism: The patellar and quadriceps tendons are intact. The medial and lateral retinacula are intact. Knee Joint: There is a moderate knee joint effusion. There is a small to moderate-sized popliteal cyst. Mild fluid and edema signal or cystic change inferior from this, in keeping with cyst leakage. Series 6 image 10 as well as series 7 image 29 demonstrate a 1.6 cm ossific loose body within the popliteus hiatus. Series 7 image 19 as well as series 5 images 16 and 17 there is a 2.2 cm ossific focus lateral and adjacent to the ACL at the level of the joint line, may represent ossific loose body. Medial Compartment: Horizontal superior surface tearing involves the body of the medial meniscus. There is horizontal superior surface tearing through the posterior horn as well, with additional mild to moderate appearance of truncation involving the posterior horn. No displaced flap fragment or parameniscal cyst. There is a 1.6 x 1.9 cm segment of grade 3 and IV chondromalacia involving the mid to posterior lateral surface of the medial femoral condyle. No other significant changes of chondromalacia. Lateral Compartment: Diffuse grade 3 and IV chondromalacia involves the weightbearing surfaces of the lateral joint compartment. Tearing with moderate truncation involves the body of the lateral meniscus. There is a torn, near macerated appearance through the anterior horn of the meniscus. Horizontal tearing also involves the posterior horn. No displaced flap fragment or parameniscal cyst. Patellofemoral articulation: Broad full-thickness cartilage loss of the midline patella and lateral facet. Broad full-thickness cartilage loss of the lateral trochlear groove. CONCLUSION: 1. Tearing of the body and posterior horn medial meniscus. There is a moderately large segment of grade III and IV chondromalacia of the medial femoral condyle. 2. Diffuse grade III and 4 lateral compartment chondromalacia. Tearing with moderate truncation of the body of the lateral meniscus. Nearly macerated appearance through the anterior horn. Horizontal tearing of the posterior horn. 3. 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 Chronic ossific fragments associated with the midportion of the ligament. 4. There is a moderate knee joint effusion. There is a 1.6 ossific loose body within the popliteus hiatus. Additional 2.2 cm ossific focus lateral and adjacent to the ACL may represent additional ossific loose body. 5. Broad full-thickness cartilage loss and subchondral cystic change of the patellofemoral compartment. KES Electronically signed on 09/16/2022 1:39:00 PM by Joce Bucio M.D.
== END 2022-09-16 08:00 | disposition home or self-care (01) ==
LOC: MRI 07:59
PROVIDERS: PCP Physician Assistant Medical; Visit Provider Physician Assistant Surgical
DX: M25.561 Pain in right knee (principal); M23.221 Derangement of posterior horn of medial meniscus due to old tear or injury, right knee; M94.261 Chondromalacia, right knee; M25.461 Effusion, right knee; M23.241 Derangement of anterior horn of lateral meniscus due to old tear or injury, right knee
CPT/HCPCS: 73721

== ENCOUNTER 2023-01-04 06:03 | Day surgery (SDC) | payer MEDICARE, BC, SELFPAY ==
[2023-01-04] VITALS (22 sets, daily range): BP systolic 88–148; BP diastolic 58–96; PULSE 46–84; RESP 10–18; TEMP 36–36.7; O2SAT 97–100; BMI 30.9
[2023-01-04] MEDS: CELECOXIB 200 MG CAPSULE PO (06:20)
[2023-01-04] MEDS: ACETAMINOPHEN 500 MG TABLET 1000 MG PO ×3 (06:20→20:15)
[2023-01-04] MEDS: OXYCODONE (CR) 10 MG TAB.ER.12H PO (06:20)
[2023-01-04] MEDS: SODIUM CHLORIDE 0.9 % (FLUSH) 10 ML SYRINGE IVF ×2 (06:25→23:23)
[2023-01-04] MEDS: LACTATED RINGERS 1000 ML 1,000 ML 100 ML IV (06:25)
[2023-01-04] MEDS: fentaNYL 100 MCG/2 ML inj IVP (07:01)
[2023-01-04] MEDS: MIDAZOLAM HCL 1 MG/ML inj IVP (07:01)
--- NOTE | 2023-01-04 07:06 | W.ANESCHARGE ---
Anesthesia Charges Start Date/Time Anesthesia Start Date: 01/04/23 Anesthesia Start Time: 07:22 Stop Date/Time Anesthesia Stop Date: 01/04/23 Anesthesia Stop Time: 09:38 Summary Extremes of Age - Over 70 or under 1: MDA
--- NOTE | 2023-01-04 07:07 | P.NB_ITS ---
Nerve Block Nerve Block Time Seen by Provider: 07:05 Date Seen: 01/04/23 Type of block requested by surgeon for post-operative analgesia: geniculars Time out performed: Yes Verification of patient name: Yes Verification of date of : Yes Site marking: site marked Name of person performing procedure: Ciro Continuous monitoring Was continuous monitoring of O2 sat, B/P, casino operations supervisor, recorded every 15 minutes?: Yes Procedure Checklist: sterile prep, needles and gloves Medications given in 5ml increments after negative aspiration: Ropivicaine %: 0.5 mL: 9 Needle gauge: 25 Patient tolerated procedure well: Yes Block Charges Block Charge (with Pro Fee): Genicular Nerve Block Use of Ultrasound Machine for Block: No
--- NOTE | 2023-01-04 07:07 | P.NB_ITS ---
Nerve Block Nerve Block Time Seen by Provider: 07:05 Date Seen: 01/04/23 Type of block requested by surgeon for post-operative analgesia: adductor canal Side: right Time out performed: Yes Verification of patient name: Yes Verification of date of : Yes Site marking: site marked Name of person performing procedure: Ciro Continuous monitoring Was continuous monitoring of O2 sat, B/P, quality assurance monitor final, recorded every 15 minutes?: Yes Procedure Checklist: sterile prep, needles and gloves Ultrasound guided. Images saved: Yes Medications given in 5ml increments after negative aspiration: Ropivicaine %: 0.5 mL: 20 Needle gauge: 20 Decadron (mg): 10 Precedex (mcg): 25 Patient tolerated procedure well: Yes Additional comments: Needle noted adjacent to nerve Block Charges Block Charge (with Pro Fee): Femoral Nerve Use of Ultrasound Machine for Block: Yes- US Guidance/pain block
--- NOTE | 2023-01-04 07:12 | SUR.PREOP ---
TIME?OUT:?0700 PT/Keila DEWEY RN/Brenda BANG MDA?VERIFICATION?OF?SURGICAL?SITE,?PROCEDURE,?AND?CONSENT OBTAINED?PRIOR?TO?INVASIVE?PROCEDURE.
--- NOTE | 2023-01-04 08:55 | CRLHL7_ITS ---
For Patients: As a result of the Cures Act, medical imaging exams and procedure reports are released immediately into your electronic medical record. You may view this report before your referring provider. If you have questions, please contact your health care provider. Indication: Post op right TKA Technique: Two views right knee Findings/Impression: Hardware from a right total knee arthroplasty is in satisfactory position. Bone alignment is normal. No sign of acute fracture. Postop changes are within normal limits. Dictated by Ottoniel Dior MD @ 01/04/2023 10:25:22 AM (Electronically Signed)
--- NOTE | 2023-01-04 08:57 | P.ORPRC_ITS ---
Procedure Note Date of procedure: 01/04/23 Procedure: PREOPERATIVE DIAGNOSIS: Right knee osteoarthritis POSTOPERATIVE DIAGNOSIS: Right knee osteoarthritis NAME OF OPERATION: Right total knee arthroplasty SURGEON: Remigio Calderon MD PRICING SPECIALIST: Pushpa Trujillo PA-C ANESTHESIA: Spinal ESTIMATED BLOOD LOSS: 0 mL COMPLICATIONS: None SPECIMENS: None DRAINS: None PREOPERATIVE ANTIBIOTICS: Ancef 2 grams IMPLANTS: 1. J&J Attune # 8 posterior stabilized femur 2. # 8 fixed-bearing tibia 3. # 8 posterior stabilized, 5 mm fixed-bearing polyethylene 4. 41 patella INDICATIONS: The patient is a 73-year-old with a longstanding history of severe, unrelenting right knee pain secondary to end-stage (grade IV) right knee osteoarthritis. Despite appropriate nonoperative management, including activity modification, anti-inflammatories, [id number]-nyetemc pain medication, bracing, physical therapy, and injections they continue to have pain and disability. Operative intervention was offered. The risks, benefits and expected outcomes were discussed in detail. These included but were not limited to: Infection, bleeding, injury to blood vessel or nerve, venous thromboembolism. All questions were answered to their satisfaction. Use of an mental health assistant was necessary throughout the case for patient positioning and safety, soft tissue retraction, and closure. PROCEDURE: Spinal anesthesia was administered. The patient was placed supine on the operating table. The mental health assistant made sure the patient was positioned appropriately. The lower extremity was prepped and draped in the usual sterile fashion. The limb was exsanguinated with the Oskar bandage. The pneumatic tourniquet was inflated to 300 mmHg. A standard anterior incision was made with the knee in flexion. Subcutaneous dissection was sharply taken through fascial layer #1. Full-thickness medial and lateral flaps were elevated. The mental health assistant retracted the soft tissues and protected them throughout the case. A standard medial parapatellar approach was made. The patella was everted. The infrapatellar fat pad was preserved. The menisci and cruciate ligaments were sharply d?brided. Marginal osteophytes were d?brided with the rongeur. The drill was used to penetrate the femoral canal. The canal was aspirated and irrigated with pulse lavage. The intramedullary femoral guide was placed for a 5-degree valgus cut, removing 10 mm off the distal femur. The saw was used to make the cut. Whitesides line and the trans epicondylar axis were marked. The femoral sizing guide was pinned onto the distal femur. Three degrees of external rotation nicely parallels the transepicondylar axis. Pins were placed for posterior referencing. The four-in-one cutting guide was pinned onto the distal femur. The anterior, posterior, and chamfer cuts were made. The mental health assistant protected the collateral ligaments. The box cutting guide was pinned. The box cuts were made. The boxed trial was placed and was an excellent fit. Drill holes for the lugs were made. Attention was then turned to the proximal tibia. The extramedullary tibial guide was placed for a neutral varus/valgus cut with 5 degrees of posterior slope, removing 2 mm based off the medial tibial surface. The mental health assistant protected the collateral ligaments and the neurovascular bundle. The saw was used to make the cut. Trial components were placed. The knee was tight in both flexion and extension. Therefore, we replaced the tibial cutting guide, advan cing it 2 more mm distally. We recut the proximal tibia. Trial components were placed. Now the knee was nicely balanced in both flexion and extension. The trial components were removed. The tray was placed in appropriate rotation, parallel to our tibial cutting pins. It was pinned by the mental health assistant and the drill and the punch were used. The tray was removed. The punch was used again. We placed a bone plug in the femoral canal. Attention was then turned to the patella. Rampart patellar thickness was 22 mm. The lobster claw resection guide was used with the 9.5 mm elba. The saw was used to make the cut. Drill holes were made by the mental health assistant. The trial was placed and was an excellent fit. Cancellous surfaces were irrigated with pulse lavage and thoroughly dried by the mental health assistant. We cemented the tibial component, then the femoral component. We impacted the 5 mm polyethylene onto the tibial tray. The knee was brought into full extension. We then cemented the patellar component. Excessive cement was removed. The cement was allowed to harden. The knee was taken through a range of motion and was found to be nicely balanced in both flexion and extension. The patella tracks centrally. The mental health assistant did a three minute dilute Betadine solution soak. The mental health assistant irrigated the wound with 3 liters of normal saline via pulse lavage. The mental health assistant reapproximated the extensor mechanism with #1 Vicryl in an interrupted jfadgk-jx-pukrr fashion. The mental health assistant then ran the extensor mechanism with a #1 PDO Stratafix. The mental health assistant closed the subcutaneous tissues with a 3-0 Stratafix and the skin with a running 3-0 Stratafix in a subcuticular fashion. Glue was used to seal the skin. The mental health assistant placed a dry dressing, FRANCISCO stocking, and Polar Care. Sponge and needle counts were correct x2. The patient tolerated the procedure well. There were no apparent complications. They were carefully transferred to the hospital bed and taken to the postanesthesia care unit in satisfactory condition. PLAN: The patient will be mobilized with physical therapy. Aspirin will be used for DVT prophylaxis. They will be discharged to home once medically appropriate.
--- NOTE | 2023-01-04 09:06 | SUR.OPER ---
PATIENT QUESTIONS ANSWERED SATISFACTORILY PREOPERATIVELY BY Brenda LEONARD RN.? PATIENT BROUGHT TO OR #2 PER CART AFTER ADMINISTRATION OF A BLOCK.? Patient positioned supine on OR #2 bed.? The perioperative?team supported arms bilaterally on arm boards.? Final approval of positioning by surgeon.
--- NOTE | 2023-01-04 09:40 | W.ANESCHARGE ---
Anesthesia Charges Start Date/Time Anesthesia Start Date: 01/04/23 Anesthesia Start Time: 07:22 Stop Date/Time Anesthesia Stop Date: 01/04/23 Anesthesia Stop Time: 09:38
[2023-01-04] MEDS: LACTATED RINGERS 1000 ML 1,000 ML 75 ML IV (11:31)
[2023-01-04] MEDS: CEFAZOLIN 2 GM in 0.9 % SODIUM CHLORIDE Mini-bag 100 ML IVPB ×2 (13:57→21:31)
--- NOTE | 2023-01-04 15:58 | PM.IMCN1 ---
Date of Consult Consult date: 01/04/23 Requesting Physician: Orthopedics Primary Care Provider: Love Juan PA-C Consult Narrative Reason for consult: Management of perioperative medical problems Narrative: Shine Chowdhury is a 73 year old male seen in consultation for management of medical problems following knee arthroplasty. Patient is admitted today where he underwent right total knee arthroplasty. Procedures performed by Dr. Calderon. There were no operative complications. Postoperatively he is doing well. His pain is well controlled. He has no nausea. He reports preoperatively he was doing well other than his knee pain. He has had previous problems with his right knee locking up. In September he had severe onset of pain in his knee when he just straight did out. This improved well with a cortisone injection. Patient underwent hip arthroplasty last April. This was done without complications. Three days after his surgery he did have a syncopal episode at home. We did talk about caution with blood pressure medication perioperatively, especially with hip arthroplasty causing blood loss. He does drink about a case of beer a week. He drinks , Tuesday, Tuesday, Tuesday 5-6 beers each day. He does not drink on Tuesday or Tuesday. He denies any problems with alcohol withdrawal and did not have any problems with his previous surgery. Review of Systems Narrative: Reports no recent illness or injury. Just his knee pain. [facility] Medical History Excessive drinking of alcohol ?F10.10 - Alcohol abuse, uncomplicated (ICD-10) Presence of orthopedic implant of hip ?Z96.7 - Presence of other bone and tendon implants (ICD-10) Alcohol abuse ?F10.10 - Alcohol abuse, uncomplicated (ICD-10) Benign prostatic hyperplasia ?N40.0 - Benign prostatic hyperplasia without lower urinary tract symptoms (ICD-10) Osteoarthritis of left hip ?M16.12 - Unilateral primary osteoarthritis, left hip (ICD-10) Skin cancer, basal cell ?C44.91 - Basal cell carcinoma of skin, unspecified (ICD-10) Hypertension ?I10 - Essential (primary) hypertension (ICD-10) Surgical History Hx of tonsillectomy ?Z90.89 - Acquired absence of other organs (ICD-10) 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) ?Z96.642 - Presence of left artificial hip joint (ICD-10) H/O transurethral resection of prostate ?Z98.890 - Other specified postprocedural states (ICD-10) ?Z90.79 - Acquired absence of other genital organ(s) (ICD-10) Family History Father Colon cancer S/P triple vessel bypass Mother Myocardial infarction Sister Tremor Brother History of total knee replacement Diabetes Social History Smoking Status: Never smoker Do you use any of these nicotine containing products: None How often do you have a drink containing alcohol: 4 or more times a week Alcohol type: beer Alcohol type details: case/week How many standard drinks containing alcohol do you have on a typical day: 5 or 6 How often do you have six or more drinks on one occasion: Weekly AUDIT-C Alcohol total score: 9 Non-prescribed substance use: denies use Caffeine: Yes (coffee, 4-6 cups/day) Meds Home Medications and Allergies Home Medications Medication Instructions Recorded Confirmed Type lisinopril 20 1 tab PO DAILY 04/19/22 01/04/23 History mg-hydrochlorothiazide 12.5 mg tablet rosuvastatin 10 mg tablet 10 mg PO HS 09/09/22 01/04/23 History Allergies Allergy/AdvReac Type Severity Reaction Status Date / Time No Known Allergies Allergy Unknown Verified 01/04/23 06:35 Exam Narrative: Exam Narrative: He is alert and oriented. He gives his own history. He appears in no distress. Oropharynx with small airway. Neck is supple without mass or adenopathy. Respirations are clear to auscultation. Cardiovascular: S1, S2, regular rate and rhythm. No murmur gallop rub. Abdomen: Bowel sounds active. Abdomen is soft without tenderness or mass. He has good peripheral pulses. No edema. Good strength and motion in both feet and ankles. Const: Vital Signs, click to edit/add: Vital Signs - 24 hr 01/04/23 06:36 01/04/23 06:59 01/04/23 07:05 Temperature 97.8 F Pulse Rate 56 L 49 L 48 L Pulse Rate [Pulse Oximeter] Respiratory Rate 16 16 16 Blood Pressure 138/88 140/86 H 108/95 H Blood Pressure [Ri ght Arm] Pulse Oximetry 99 99 98 Oxygen Delivery Me thod Room Air Nasal Cannula Nasal Cannula Oxygen Flow Rate 2 2 01/04/23 09:33 01/04/23 09:40 01/04/23 09:45 Temperature 97.6 F Pulse Rate 53 L 59 L 52 L Pulse Rate [Pulse Oximeter] Respiratory Rate 16 14 12 Blood Pressure 88/58 L 100/66 95/65 Blood Pressure [Ri ght Arm] Pulse Oximetry 99 98 99 Oxygen Delivery Me thod Room Air Room Air Room Air Oxygen Flow Rate 01/04/23 09:50 01/04/23 09:55 01/04/23 10:00 Temperature 97.6 F Pulse Rate 51 L 48 L 48 L Pulse Rate [Pulse Oximeter] Respiratory Rate 10 L 12 12 Blood Pressure 103/76 105/76 111/70 Blood Pressure [Ri ght Arm] Pulse Oximetry 98 98 98 Oxygen Delivery Me thod Room Air Room Air Room Air Oxygen Flow Rate 2 2 01/04/23 10:05 01/04/23 10:09 01/04/23 10:09 Temperature Pulse Rate 48 L 47 L Pulse Rate [Pulse Oximeter] Respiratory Rate 12 16 Blood Pressure 115/66 Blood Pressure [Ri ght Arm] 115/86 Pulse Oximetry 98 99 Oxygen Delivery Me thod Room Air Oxygen Flow Rate 01/04/23 10:15 01/04/23 10:30 01/04/23 10:45 Temperature 96.8 F L 96.9 F L Pulse Rate Pulse Rate [Pulse Oximeter] 49 L 52 L 46 L Respiratory Rate 16 16 16 Blood Pressure Blood Pressure [Ri ght Arm] 116/87 122/85 133/77 Pulse Oximetry 100 99 99 Oxygen Delivery Me thod Room Air Room Air Room Air Oxygen Flow Rate 01/04/23 11:00 01/04/23 11:30 01/04/23 12:00 Temperature 97.1 F L Pulse Rate Pulse Rate [Pulse Oximeter] 50 L 53 L 59 L Respiratory Rate 18 16 16 Blood Pressure Blood Pressure [Ri ght Arm] 140/88 H 138/74 139/80 Pulse Oximetry 98 99 98 Oxygen Delivery Me thod Room Air Room Air Room Air Oxygen Flow Rate 01/04/23 13:00 01/04/23 14:00 Temperature 97.2 F L Pulse Rate Pulse Rate [Pulse Oximeter] 65 68 Respiratory Rate 16 16 Blood Pressure Blood Pressure [Ri ght Arm] 137/81 135/85 Pulse Oximetry 99 99 Oxygen Delivery Me thod Room Air Room Air Oxygen Flow Rate Documenting provider has reviewed patient's vital signs: yes Assessment and Plan Assessment and plan (1) Status post right knee replacement: Status: Acute (2) Hypertension: Status: Acute Plan Routine postoperative care with pain management and therapy. Hold blood pressure medication until discharge to home. Total time spent is 40 minutes, 25 minutes in coordination of care and discussing with patient and other providers management of postoperative medical problems
[2023-01-04] MEDS: OXYCODONE 5 MG TABLET PO ×3 (16:53→22:13)
--- NOTE | 2023-01-04 18:55 | PC.NURSE ---
Patient up to floor from surgery at 1015, he is alert and oriented x 4, on RA, regular diet, vss, SBA with walker. Patient tolerating diet, fluid intake is good. Up to void (urinate) at 1800 with no issues, no BM today. Currently saline locked, cryo cuff in place. Surgical dressing CDI. 5mg Oxy given at 16:53 for patient pain rating of 5.
[2023-01-04] MEDS: ROSUVASTATIN CALCIUM 10 MG TABLET PO (20:25)
[2023-01-04] MEDS: SENNOSIDES 1 TAB TABLET 2 TAB PO (20:25)
[2023-01-04] MEDS: ASPIRIN 81 MG TABLET EC PO (20:25)
--- NOTE | 2023-01-04 22:27 | PC.NURSE ---
end of shift note: Pt. pleasant and cooperative. Pt's VSS, rated pain 4-5/10 PRN oxy administered x2 see emar. Pt. ambulated in hallway x1 and tolerated activity well. Pt's dressing to right knee is C/D/I, cryocuff to op site and wearing bilateral teds. Pt. is SBA and up to BR with walker. Plan for discharge home tomorrow w/lady friend.
[2023-01-04] MEDS: HYDROmorphone 0.5 mg/0.5 ml inj IVP (23:22)
[2023-01-05] MEDS: ACETAMINOPHEN 500 MG TABLET 1000 MG PO ×2 (01:07→06:34)
[2023-01-05] MEDS: OXYCODONE 5 MG TABLET PO ×3 (01:08→09:04)
[2023-01-05 03:00] VITALS: BP 128/73; PULSE 69; RESP 14; TEMP 36.4; O2SAT 97
[2023-01-05] MEDS: CEFAZOLIN 2 GM in 0.9 % SODIUM CHLORIDE Mini-bag 100 ML IVPB (05:41)
[2023-01-05] MEDS: SODIUM CHLORIDE 0.9 % (FLUSH) 10 ML SYRINGE IVF (05:43)
--- NOTE | 2023-01-05 05:54 | PC.NURSE ---
Shift note: Pt is doing well with ambulating with A1 to and from BR. Pt complained of frequent pain and PRN med given as prescribed. Dressing appears clean and dry. Cryocup applied. No complications recorded since resumed regular diet. Bowel sound active, no BM but confirmed passing gas. Vitally stable.
[2023-01-05 06:50] LABS: Basophils Percent Auto 0.1 % (0.0-3.0); Hematocrit 38.9 % (37.0-53.0); Immature Granulocytes Pct Auto 0.2 %; Lymphocytes Percent Auto 6.8 % (20-44); Mean Corpuscular HGB Conc 33 gm/dL (32-36); Mean Corpuscular Hemoglobin 32 pg (26-34); Mean Corpuscular Volume 94 fL (80-100); Monocytes Percent Auto 8.2 % (0.0-11.0); Neutrophils Percent Auto 84.7 % (42.0-72.0); Platelet Count* 198 K/uL (140-440); Red Blood Count 4.12 m/uL (4.30-5.90)
[2023-01-05 07:00] VITALS: BP 136/81; PULSE 61; RESP 12; TEMP 36.5; O2SAT 98
[2023-01-05 07:01] LABS: Slide Review Reflex No
[2023-01-05 07:16] LABS: Potassium* 4.4 mmol/L (3.6-5.1); Sodium* 133 mmol/L (135-149)
[2023-01-05 07:19] LABS: Blood Urea Nitrogen* 16 mg/dL (7-30); Creatinine* 0.6 mg/dL (0.5-1.5); Estimated Glomerular Filt Rate 101 ml/min
[2023-01-05 07:29] LABS: INR 0.98 (0.91-1.10); Prothrombin Time 13.6 Seconds
[2023-01-05 08:27] VITALS: TEMP 36.5
[2023-01-05] MEDS: SENNOSIDES 1 TAB TABLET 2 TAB PO (09:04)
[2023-01-05] MEDS: ASPIRIN 81 MG TABLET EC PO (09:04)
--- NOTE | 2023-01-05 09:37 | PM.ORPN ---
Subjective Subjective Time Seen by Provider: 07:30 Date Seen: 01/05/23 Principal diagnosis: Status post right knee replacement Interval history: Deric is comfortable this morning. He he does have some lateral knee pain this morning. His nausea or vomiting. Ortho Exam Narrative Exam Narrative: Alert and oriented x3. Patient is in no acute distress. Converses without labored breathing. Hearing is grossly intact. Ambulates with a walker. Examination of the right knee shows the dressing is intact. Mild effusion. Mild soft tissue edema about right knee. CMS intact right lower extremity. Bilateral calves are soft and nontender. Dressing is in place. No erythema or warmth or sign of infection. Const Vital Signs, click to edit/add: Vital Signs - 24 hr 01/04/23 09:40 01/04/23 09:45 01/04/23 09:50 Temperature Pulse Rate 59 L 52 L 51 L Pulse Rate [Pulse Oximeter] Respiratory Rate 14 12 10 L Blood Pressure 100/66 95/65 103/76 Blood Pressure [Right Arm] Pulse Oximetry 98 99 98 Oxygen Delivery Method Room Air Room Air Room Air Oxygen Flow Rate 01/04/23 09:55 01/04/23 10:00 01/04/23 10:05 Temperature 97.6 F Pulse Rate 48 L 48 L 48 L Pulse Rate [Pulse Oximeter] Respiratory Rate 12 12 12 Blood Pressure 105/76 111/70 115/66 Blood Pressure [Right Arm] Pulse Oximetry 98 98 98 Oxygen Delivery Method Room Air Room Air Room Air Oxygen Flow Rate 2 2 01/04/23 10:09 01/04/23 10:09 01/04/23 10:15 Temperature 96.8 F L Pulse Rate 47 L Pulse Rate [Pulse Oximeter] 49 L Respiratory Rate 16 16 Blood Pressure Blood Pressure [Right Arm] 115/86 116/87 Pulse Oximetry 99 100 Oxygen Delivery Method Room Air Oxygen Flow Rate 01/04/23 10:30 01/04/23 10:45 01/04/23 11:00 Temperature 96.9 F L Pulse Rate Pulse Rate [Pulse Oximeter] 52 L 46 L 50 L Respiratory Rate 16 16 18 Blood Pressure Blood Pressure [Right Arm] 122/85 133/77 140/88 H Pulse Oximetry 99 99 98 Oxygen Delivery Method Room Air Room Air Room Air Oxygen Flow Rate 01/04/23 11:30 01/04/23 12:00 01/04/23 13:00 Temperature 97.1 F L Pulse Rate Pulse Rate [Pulse Oximeter] 53 L 59 L 65 Respiratory Rate 16 16 16 Blood Pressure Blood Pressure [Right Arm] 138/74 139/80 137/81 Pulse Oximetry 99 98 99 Oxygen Delivery Method Room Air Room Air Room Air Oxygen Flow Rate 01/04/23 14:00 01/04/23 15:00 01/04/23 15:00 Temperature 97.2 F L Pulse Rate Pulse Rate [Pulse Oximeter] 68 74 Respiratory Rate 16 12 Blood Pressure Blood Pressure [Right Arm] 135/85 Pulse Oximetry 99 97 Oxygen Delivery Method Room Air Oxygen Flow Rate 01/04/23 19:00 01/04/23 23:00 01/04/23 23:00 Temperature 98.0 F Pulse Rate Pulse Rate [Pulse Oximeter] 84 72 Respiratory Rate 14 16 Blood Pressure Blood Pressure [Right Arm] 142/96 H Pulse Oximetry 97 97 Oxygen Delivery Method Room Air Oxygen Flow Rate 01/04/23 23:00 01/05/23 03:00 01/05/23 08:27 Temperature 97.8 F 97.6 F 97.7 F Pulse Rate Pulse Rate [Pulse Oximeter] 72 69 Respiratory Rate 14 14 Blood Pressure Blood Pressure [Right Arm] 148/82 H 128/73 Pulse Oximetry 97 97 Oxygen Delivery Method Room Air Room Air Oxygen Flow Rate Assessment and Plan Assessment and plan (1) Status post right knee replacement: Status: Acute Assessment and Plan: Plan for discharge is today to home if they meet discharge criteria. DVT prophylaxis includes aspirin 81 mg twice daily x1 month, Jay stockings x1 month may remove for 1 hr per day, frequent ambulation Remove dressing in 1 week. Observe wound and phone Orthopedics with any questions or concerns Return to clinic in 1 week for a wound check Return to clinic in [address] Calderon Minimize narcotic use. Wean off and discontinue soon as possible. Activities as tolerated. No strenuous activity. Outpatient physical therapy as scheduled. Ice and elevate the operative extremity. No restriction on ice. (2) Hypertension: Status: Acute
[2023-01-05 10:09] VITALS: BP 115/66; PULSE 47; RESP 12; TEMP 36.5
--- NOTE | 2023-01-05 11:01 | PC.SOCIAL ---
Per therapy pt is moving around well. Pt has assistance from significant other at home during recovery. Pt's room and bathroom are all on one level. No social work needs identified.
== END 2023-01-05 11:02 | disposition home or self-care (01) ==
LOC: OR 06:04 → MEDSURG 06:08
PROVIDERS: PCP Physician Assistant Medical; Visit Provider Orthopaedic Surgery
PROC: (CPT 27447; principal; 2023-01-04 07:15)
DX: M17.11 Unilateral primary osteoarthritis, right knee (principal); I10 Essential (primary) hypertension; F10.10 Alcohol abuse, uncomplicated; Z96.642 Presence of left artificial hip joint; G89.18 Other acute postprocedural pain
CPT/HCPCS: 27447; 01402; 36415; 64447; 64454; 73560; 76942; 82565; 84132; 84295; 84520; 85025; 85610; 97110; 97116; 97161; 97165; 97530; 97535; 99100; A9270; C1776; J0690; J1100; J1170; J2250; J2704; J2795; J3010; J7120

== ENCOUNTER 2023-02-18 11:00 | Outpatient (RCR) | payer MEDICARE, BC, SELFPAY ==
--- NOTE | 2022-12-28 13:50 | PT.OPEX ---
PT [place] Outpatient Eval PT [facility] Outpatient Eval Start: 12/28/22 12:33 Freq: Status: Active Protocol: Document 12/28/22 12:34 SHIVANI (Rec: 12/28/22 12:53 SHIVANI [id number]) E-signed By Ketty Gaming DPT Physical Therapy Outpatient Evaluation Insurance Information Recert Due Date 03/28/23 Insurance Name Medicare B Medical Diagnosis R knee OA R TKA 01/04/23 Treating Diagnosis R knee pain, impaired R knee ROM, impaired R knee/LE mobility/strength, impaired gait Subjective Subjective Patient comes to PT for TKA pre-op session. Reports some chronic R knee pain issues leading up to R knee injection in Sep and now R TKA scheduled for 01/04/23. Reports he has been doing fairly well after the injection, minimal pain. He is not using an AD. Patient has a 4ww to use after surgery. He had L ENRIQUE last April. Patient will have 24 hour assistance at home. Date of Last Physician Visit 10/11/22 Date of Surgery (If applicable) 01/04/23 Current Work Status Retired Precautions Treatment Precautions/Contraindications L ENRIQUE April 2022 Assessment Assessment/Impression Patient with R knee OA leading up to R TKA scheduled for 01/04. Patient with R knee pain , impaired R knee ROM, impaired R knee/LE mobility/ strength, impaired gait. Patient seen in PT today for pre-op session to provide education/information on upcoming TKA surgery, safety information/HO, equipment instruction including use of FWW, and instruction in TKA exercises. Handouts issued for exercises, patient to perform them leading up to surgery. Reviewed PT/OT plan during hospital stay and patient is scheduled for OP PT post op. He reports having 2 stairs to enter his home through the garage and then 7 stairs up to the main level. Once on the main level he can stay there. Also states he could enter the home using a ramp to the deck and then into the main level. He has 24 hour assistance at home. States he has a walk in shower with a shower chair, high toilet with engel he can use to pull up from the toilet as needed. Patient had L ENRIQUE last April. He has a 4ww to use after surgery. Reviewed that he may need to get a FWW depending on how he is doing after surgery. He expressed understanding. Patient would benefit from skilled PT for pain/sx management, improved knee ROM, improved knee/LE mobility/strength, improved gait, balance/proprioception training, and establishment of HEP. Plan of Care Rehabilitation Potential Good Physical Therapy Goals 1. Patient will be educated in TKA pre/post-op safety, mobility, and exercises with HOs provided within one visit with patient returning to PT for post op treatment after R TKA surgery on 01/04/23. PT goals will be updated to TKA rehab goals when patient returns post op. Coordination/Communication With Referral Source Treatment Plan/Direct Interventions Gait Training,Manual Therapy, Therapeutic Exercises Frequency/Duration 1 pre-op visit, then 2x/week post op Patient Will Be Discharged From Therapy Completion of LTG(s),Skills Plateau,Independent w/HEP, Independently Progressing Evaluation Billing Untimed Code Treatment Minutes 34 Complexity Moderate Certification Information Initial Certification Date 12/28/22 Ending Certification Date 03/28/23 Provider Signature Shows Agreement With POC & Medical Necessity Physician Signature & Date Requested Please Sign/Date Here Physician Comment/Change : Physician NPI Number #
== END 2023-06-18 23:59 | disposition home or self-care (01) ==
PROVIDERS: PCP Physician Assistant Medical; Visit Provider Orthopaedic Surgery
DX: M17.11 Unilateral primary osteoarthritis, right knee (principal); Z96.651 Presence of right artificial knee joint; M25.561 Pain in right knee; R26.9 Unspecified abnormalities of gait and mobility; R53.1 Weakness; Z51.89 Encounter for other specified aftercare
CPT/HCPCS: 97110; 97162; 97164

== ENCOUNTER 2024-12-30 19:32 | Emergency (ER) | payer MEDICARE, BC, SELFPAY ==
--- OUTSIDE RECORDS SUMMARY | 2024-12-30 19:34 | XMS_ITS | Clinical Summary ---
Author Organization [facility] Address [address] [place] [id number] Care Team Providers Care Still Runner Name Role Phone Ottoniel Field MD Unavailable Unavailab Love Peña Primary Care Provider Allergies No known active allergies Medications olmesartan (BENICAR) 20 mg tabletIndications:H TN (hypertension) Take 1 Tablet (20 mg) by mouth once daily. 90 Tablet 3 4 Active rosuvastatin (CRESTOR) 10 mg tabletIndications:H yperlipidemia, unspecified hyperlipidemia type Take 1 Tablet (10 mg) by mouth at bedtime. 90 Tablet 3 4 Active Active Problems Problem Noted Date Diagnosed Date Colon polyps 06/05/2010 Overview (01/17/2024): Colonoscopy 05/2010 polyps repeat in 3 years Colonoscopy 06/2013 inflammatory polyp repeat in 3 years Colonoscopy 11/2016 diverticulosis repeat in 5 years Colonoscopy 01/2024 TA, repeat in 7 years Hypertension 02/20/2009 Immunizations Immunization Administration Dates Next Due COVID-19 vaccine (gDecideBio NTech 30mcg/0.3mL) 12YO+ BIVALENT PFMDV 07/14/2022 Td (Age >=7 Years) 04/12/2008,10/07/1998 Family History Medical History Relation Name Comments Heart Disease Father cabg x 3 Other Father prostate ca Stroke Father Other Paternal Uncle cancer type u nknown Relation Name Status Comments Father Paternal Uncle Social History Tobacco Use Types Packs/Day Years Used Date Smoking Tobacco: Never Smokeless Tobacco: Never Tobacco Cessation:Counseling Given: No Alcohol Use Standard Drinks/Week Comments Yes 24 (1 standard drink = 0.6 oz pu re alcohol) case of beer per week PHQ-2 Answer Date Recorded PHQ-2 TOTAL SCORE 0 09/03/2024 Social Connections Answer Date Recorded Do you often feel lonely or isolated from those around you? 0 09/03/2024 Financial Resource Strain Answer Date R ecorded Difficulty of Paying Living Expenses 3 09/03/2024 Difficulty of Paying Living Expenses Not on file 09/03/2024 Food Insecurity Answer Date Recorded Do you worry your food will run out before you are able to buy more? 1 09/03/2024 Transportation Needs Answer Date Record ed Does lack of transportation keep you from medica l appointments? 1 09/03/2024 Does lack of transportation keep you from work, meetings or getting things that you need? 1 09/03/2024 Housing Stability Answer Date Recorded What is your housing situation today? 1 09/03/2024 Utilities Answer Date Recorded Do you have trouble paying f or utilities (for example, heat, electricity, water, phone)? 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 Not on file Not on file Not on fi le Obstetrics History Last Filed Vital Signs Vital Sign Reading Time Taken Comments Blood Pressure 129/83 09/03/2024 8:01 AM APPRENTICE ARCHITECT Pulse 58 09/03/2024 8:01 AM APPRENTICE ARCHITECT Temperature 36.3 C (97.3 F) 04/16/2022 10:46 AM CDT Respiratory Rate 12 01/11/2024 11:05 AM CDT Oxygen Saturation 96% 01/11/2024 11:05 AM CDT Inhaled Oxygen Concentration - - Weight 90.4 kg (199 lb 6.4 oz) 09/03/2024 8:01 A M APPRENTICE ARCHITECT Height 172.7 cm (5' 8) 09/03/2024 8:01 AM APPRENTICE ARCHITECT Body Mass Index 30.32 09/03/2024 8:01 AM APPRENTICE ARCHITECT Plan of Treatment Health Maintenance Due Date Last Done Comments Tdap 01/04/1960 Hepatitis C screening for ag e 18-79 1967 Pneumococcal series for age 50+ (1 of 1 - PCV) 1999 Zoster (shingles) series for age 50+ (1 of 2) 1999 Tetanus booster 04/12/2018 04/12/2008, 10/07/1998 RSV vaccine for adults or (1 - 1-dose 75+ series) 01/04/2024 COVID-19 vaccine series ( season) 2024 07/14/2022, 07/03/2021, 12/06/2020, Additional history exists Influenza Vaccine (Season Ended) 2025 BMI (ht and wt on same day) for age 18+ 09/03/2025 09/03/2024, 08/01/2023, 12/27/2022, Additional history exists Depression screening for age 12+ 09/03/2025 09/03/2024, 08/04/2023, 08/01/2023, Additional history exists Medicare Wellness for age 65+ 09/04/2025, 08/01/2023, 07/14/2022, Additional history exists Lipids for age 45-75 09/03/2029 09/03/2024, 08/01/2023, 07/14/2022, Additional history exists Colonoscopy through age 75 01/10/203101/10, 01/11/2024, 01/11/2024, Additional history exists Procedures Procedure Name Priority Date/Time Associated Diagnosis Comments LIPID PANEL W REFLEX MEASURED LDL Routine 09/03/2024 8:50 AM APPRENTICE ARCHITECT Hyperlipidemia, unspecified hyperlipidemia type COLONOSCOPY SCREENING Routine 01/11/2024 9:54 AM CDT History of colon polyps from Last 3 Months or Most Recently Relevant to Health Maintenance Results * LIPID PANEL W REFLEX MEASURED LDL (09/03/2024 8:50 AM APPRENTICE ARCHITECT) CHOLESTEROL, TOTAL 160 <200 mg/dL [facility] HDL CHOLESTEROL 77 > OR = 40 mg/dL [facility] TRIGLYCERIDES 51 <150 mg/dL [facility] LDL-CHOLESTEROL 70 mg/dL (calc) [facility] Comment: Reference range: <100 Desirable range <100 mg/dL for primary prevention; <70 mg/dL for patients with CHD or diabetic patients with > or = 2 CHD risk factors. LDL-C is now calculated using the Mook calculation, which is a validated novel method providing better accuracy than the Friedewald equation in the estimation of LDL-C. Oskar OTOOLE et al. LOC. 2013;310(19): 4974-3431 (http://education.Rollbar/faq/OXV346) CHOL/HDLC RATIO 2.1 <5.0 (calc) [facility] NON HDL CHOLESTEROL 83 <130 mg/dL (calc) [facility] Comment: For patients with diabetes plus 1 major ASCVD risk factor, treating to a non-HDL-C goal of <100 mg/dL (LDL-C of <70 mg/dL) is considered a therapeutic option. Blood BLOOD SPECIMEN / Unknown 09/03/2024 8:50 AM APPRENTICE ARCHITECT 09/03/2024 8:52 AM APPRENTICE ARCHITECT Love [facility]MI[facility] Final R esult [facility] [address] [address], [place] [address] * COLONOSCOPY (01/11/2024 9:19 AM CDT) 01/11/2024 9:19 AM CDT Narrative Transcriptions Oskar Ying MD - 01/11/2024 10:54 AM CDT Patient Name: Shine Chowdhury Procedure Date: 01/11/2024 Gender: Male Date of : 1950 Admit Type: Outpatient Procedure: Colonoscopy Proceduralist: Oskar Ying MD , Barbara Kapadia, RN(Nurse), Lisset Roach (Nurse) Referring MD: Love Juan Indications/Pre-Op Diagnosis: High risk colon cancer surveillance:Personal history of adenoma (10 mm or greater insize), Last colonoscopy: November 2016 Medications: Fentanyl 100 micrograms IV, Midazolam 3 mgIV, The level of sedation administered wasmoderate Procedure Description: The patient had risks, benefits and alternatives explained to andgave informed consent. The patient had a stable cardiopulmonary status and judged an adequate candidate for conscious sedation. The [id number] was passed through the anus and advanced to the cecum, identified by appendiceal orifice and ileocecal valve. Thecolonoscopy was performed without difficulty. The patient tolerated the procedure well. The quality of the bowel preparation was good. The ileocecal valve, appendiceal orifice, and rectum were photographed. Complications: No immediate complications. Estimated Blood Loss & Specimen: Estimated blood loss: none. Specimen collected - Yes and sent to Laboratory Findings: The perianal and digital rectal examinations were normal. A 4 mm polyp was found in the descending colon. The polyp wassessile. The polyp was removed with a cold snare. Resection and retrieval were complete. Multiple large-mouthed and small-mouthed diverticula were found inthe sigmoid colon. There was narrowing of the colon in association withthe diverticular opening. The exam was otherwise without abnormality. Impressions/Post-Op Diagnosis: - One 4 mm polyp in the descending colon, removed with a cold snare. Resected and retrieved. - Moderate diverticulosis in the sigmoid colon. There was narrowingof the colon in association with the diverticular opening. - The examination was otherwise normal. Recommendation: - Patient has a contact number available for emergencies. The signsand symptoms of potential delayed complications were discussed with the patient. Return to normal activities tomorrow. Written discharge instructions were provided to the patient. - Resume previous diet. - Continue present medications. - Await pathology results. - Repeat colonoscopy is recommended. The colonoscopy date will be determined after pathology results from today's exam become available for review. Moderate Sedation: A time out was performed before the procedure. Moderate (conscious) sedation was administered by the endoscopy nurse and supervised bythe endoscopist. The following parameters were monitored: oxygensaturation, heart rate, blood pressure, EKG, CO2, respiratory rate, adequacy of pulmonary ventilation and reponse to care. Please refer to the patient's medical record flowsheets and nursing notes for moderate sedation details. Total physician intraservice time was 18 minutes. Oskar Ying MD 01/11/2024 10:53:53 AM This report has been signed electronically. Note Initiated On: 01/11/2024 9:19 AM Procedure Code(s): --- Professional --- 52861, Colonoscopy, flexible; with removalof tumor(s), polyp(s), or other lesion(s) bysnare technique Diagnosis Code(s): --- Professional --- Z86.010, Personal history of colonicpolyps D12.4, Benign neoplasm of descending colon K57.30, Diverticulosis of large intestine without perforation or abscess withoutbleeding CPT copyright 2022 [employer]. All rights reserved. The codes documented in this report are preliminary and upon him coder reviewmay be revised to meet current compliance requirements. Scope In: 10:30:05 AM Scope Withdrawal Time 0 hours 10 minutes 2 seconds Scope Out: 10:45:11 AM us Oskar Ying MD PROCEDURE ORD Final Res ult from Last 3 Months or Most Recently Relevant to Health Maintenance Insurance [facility] MEDICARE [place] ONLY Care Teams Still Runner Relationship Specialty Start Date End Date Love Juan PA [address] [place] [address] PCP - General Physician Clinical Administrator 07/13/21 Ottoniel Field MD 05/11/11
[2024-12-30 19:44] VITALS: BP 211/101; PULSE 66; RESP 18; TEMP 37.2; O2SAT 96; BMI 29.6
--- NOTE | 2024-12-30 21:13 | CRLHL7_ITS ---
For Patients: As a result of the Cures Act, medical imaging exams and procedure reports are released immediately into your electronic medical record. You may view this report before your referring provider. If you have questions, please contact your health care provider. Indication: RT KNEE PAIN, NO INJURY. Technique: Right knee 3 views Comparison: Right knee radiographs dated 07/06/2023 Findings: Bones: Redemonstrated postsurgical changes of right total knee arthroplasty. No evident acute fracture or dislocation. Joint spaces: Moderate joint effusion, increased relative to prior. Soft tissues: No definite acute findings. Evaluation of the soft tissues on the frontal and lateral views is somewhat limited due to overlying external material. Impression: No evident acute fracture or dislocation. Moderate knee joint effusion, increased relative to prior. Dictated by Macario Conway MD @ 12/30/2024 9:46:09 PM (Electronically Signed)
--- NOTE | 2024-12-30 21:14 | ED_ITS ---
HPI - Extremity Injury (Lower) General Date Seen: 12/30/24 Chief Complaint: Extremity Pain/Injury, Lower Stated Complaint: R knee swelling, pain Time Seen by Provider: 12/30/24 21:08 Source: patient Mode of arrival: ambulatory Limitations: no limitations History of Present Illness HPI Narrative: Patient is a 74-year-old male presenting for right knee pain. Got knee replaced in January 2023. Was not having any issues with it until this past month. He states he was down in [place] when he noticed his right knee swelled up on 12/07/2024. This occurred after walking up some steps. About 2 days later the symptoms went away. Then again on 12/18 same thing happened. Did put a wrap on the knee that seemed to help. Then starting yesterday after walking up some steps he notice similar episode. The swelling has not improved since then. Pain seemed tolerable this morning but been getting worse throughout the day. Has been using ibuprofen with some improvement in symptoms. Denies fevers, chills. No other concerns noted. Related Data Home Medications ?Medication ?Instructions ?Recorded ?Confirmed rosuvastatin 10 mg tablet 10 mg PO HS 09/09/22 12/30/24 olmesartan 20 mg tablet 20 mg PO DAILY 01/04/24 12/30/24 Allergies Allergy/AdvReac Type Severity Reaction Status Date / Time No Known Allergies Allergy Unknown Verified 12/30/24 19:54 Review of Systems Narrative: Pertinent systems reviewed and were negative unless stated in HPI PFSH PFS Medical History (Updated 12/30/24 @ 21:49 by Javi Mcrae DO) Excessive drinking of alcohol ?F10.10 - Alcohol abuse, uncomplicated (ICD-10) Presence of orthopedic implant of hip ?Z96.7 - Presence of other bone and tendon implants (ICD-10) Alcohol abuse ?F10.10 - Alcohol abuse, uncomplicated (ICD-10) Benign prostatic hyperplasia ?N40.0 - Benign prostatic hyperplasia without lower urinary tract symptoms (ICD-10) Osteoarthritis of left hip ?M16.12 - Unilateral primary osteoarthritis, left hip (ICD-10) Skin cancer, basal cell ?C44.91 - Basal cell carcinoma of skin, unspecified (ICD-10) Hypertension ?I10 - Essential (primary) hypertension (ICD-10) Surgical History (Updated 04/21/23 @ 08:31 by Aram Kumar) Status post right knee replacement (01/04/23) ?Z96.651 - Presence of right artificial knee joint (ICD-10) Hx of tonsillectomy ?Z90.89 - Acquired absence of other organs (ICD-10) 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) ?Z96.642 - Presence of left artificial hip joint (ICD-10) H/O transurethral resection of prostate ?Z98.890 - Other specified postprocedural states (ICD-10) ?Z90.79 - Acquired absence of other genital organ(s) (ICD-10) Family History Father Colon cancer S/P triple vessel bypass Mother Myocardial infarction Sister Tremor Brother History of total knee replacement Diabetes Social History (Reviewed 01/04/24 @ 10:50 by Dalia Porras ~ [facility]) Smoking Status: Never smoker Do you use any of these nicotine containing products: None How often do you have a drink containing alcohol: 4 or more times a week Alcohol type: beer Alcohol type details: case/week How many standard drinks containing alcohol do you have on a typical day: 5 or 6 How often do you have six or more drinks on one occasion: Weekly AUDIT-C Alcohol total score: 9 Non-prescribed substance use: denies use Caffeine: Yes (coffee, 4-6 cups/day) Exam Narrative: Exam Narrative: Const: Well-nourished, Well-developed, in mild distress Eyes: PERRL, no conjunctival injection, and symmetrical lids HENT: Atraumatic external nose and ears. Moist mucous membranes. MSK: Swelling noted to right knee with no erythema or redness over the top, Normal Active ROM Skin: Warm, Dry. No rashes or lesions. Neuro: Normal Muscle tone, No focal neurological deficits. Psych: Awake, Alert, & Oriented x3. Appropriate mood and affect. Const: Vital Signs, click to edit/add: Vital Signs - 24 hr 12/30/24 19:44 Temperature 99.0 F Pulse Rate [Right Pulse Oximeter] 66 Respiratory Rate 18 Blood Pressure [Ri ght Forearm] 211/101 H Pulse Oximetry 96 Oxygen Delivery Me thod Room Air Course Vital Signs Vital signs: Initial Vital Signs Temperature 99.0 F 12/30/24 19:44 Temperature Source Temporal Artery Scan 12/30/24 19:44 Pulse Rate 66 12/30/24 19:44 Pulse Rhythm Regular 12/30/24 19:44 Pulse Strength 3+ Normal 12/30/24 19:44 Respiratory Rate 18 12/30/24 19:44 Blood Pressure 211/101 H 12/30/24 19:44 Blood Pressure Mean 137 H 12/30/24 19:44 Blood Pressure Position Sitting 12/30/24 19:44 Pulse Oximetry 96 12/30/24 19:44 Oxygen Delivery Method Room Air 12/30/24 19:44 Vital Signs Temperature 99.0 F 12/30/24 19:44 Pulse Rate 66 12/30/24 19:44 Respiratory Rate 18 12/30/24 19:44 Blood Pressure 211/101 H 12/30/24 19:44 Pulse Oximetry 96 12/30/24 19:44 Oxygen Delivery Method Room Air 12/30/24 19:44 Temperature 99.0 F 12/30/24 19:44 Pulse Rate 66 12/30/24 19:44 Respiratory Rate 18 12/30/24 19:44 Blood Pressure 211/101 H 12/30/24 19:44 Pulse Oximetry 96 12/30/24 19:44 Oxygen Delivery Method Room Air 12/30/24 19:44 MDM - Extremity Injury (Lower) MDM Narrative Medical decision making narrative: Patient is a 74-year-old male presenting for right knee pain. Symptoms have been going on since yesterday. This is the 3rd time it has occurred a month symptoms using get better couple days but pain is coming hard to bear so he came in to be evaluated. At this time there is no signs of gout or septic arthritis. Does likely have fluid in the knee. Will order an x-ray. Toradol given for pain. Knee x-ray shows an effusion as expected but no other abnormalities. He will be discharged. He is agreeable to this plan. Discharge Plan Discharge Clinical Impression: Effusion of knee joint right Patient Disposition: Home, Self-Care Condition: Stable Instructions: Swollen Knee Joint (ED) Additional Instructions: Take Tylenol and ibuprofen for pain. Follow-up with [facility]. Call them at Prescriptions: No Action rosuvastatin 10 mg tablet 10 mg PO HS olmesartan 20 mg tablet 20 mg PO DAILY Follow Up/Referrals: Love Juan PA-C [Primary Care Provider] - Stand Alone Forms: [email or web address] Info Instructions
--- OUTSIDE RECORDS SUMMARY | 2024-12-30 21:36 | XMS_ITS | Clinical Summary ---
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 Not on file Not on file Not on fi le Obstetrics History Last Filed Vital Signs Vital Sign Reading Time Taken Comments Blood Pressure 129/83 09/03/2024 8:01 AM PLATER [employer]ODUCTION Pulse 58 09/03/2024 8:01 AM PLATER [employer]ODUCTION Temperature 36.3 C (97.3 F) 04/16/2022 10:46 AM CDT Respiratory Rate 12 01/11/2024 11:05 AM CDT Oxygen Saturation 96% 01/11/2024 11:05 AM CDT Inhaled Oxygen Concentration - - Weight 90.4 kg (199 lb 6.4 oz) 09/03/2024 8:01 A M [employer] Height 172.7 cm (5' 8) 09/03/2024 8:01 AM [employer]ODUCTION Body Mass Index 30.32 09/03/2024 8:01 AM PLATER [employer]ODUCTION Plan of Treatment Health Maintenance Due Date [...] REFLEX MEASURED LDL Routine 09/03/2024 8:50 AM PLATER PRODUCTION Hyperlipidemia, unspecified hyperlipidemia type COLONOSCOPY SCREENING Routine 01/11/2024 9:54 AM CDT History of colon polyps from Last 3 Months or Most Recently Relevant to Health Maintenance Results * LIPID PANEL W REFLEX MEASURED LDL (09/03/2024 8:50 AM PLATER PRODUCTION) CHOLESTEROL, TOTAL 160 <200 mg/dL [facility] [...] LDL-C. Oskar OTOOLE et al. LOC. 2013;310(19): 4806-4371 (http://education.[place]/faq/SBK513) CHOL/HDLC RATIO 2.1 <5.0 (calc) [facility] ogayle Villalpando NON HDL CHOLESTEROL 83 <130 mg/dL (calc) [facility] alexandra Villalpando Comment: For patients with diabetes plus 1 major ASCVD risk factor, treating to a non-HDL-C goal of <100 mg/dL (LDL-C of <70 mg/dL) is considered a therapeutic option. Blood BLOOD SPECIMEN / Unknown 09/03/2024 8:50 AM PLATER PRODUCTION 09/03/2024 8:52 AM PLATER PRODUCTION [employer] [facility]MI[facility] Final R esult [facility] [address] [address], [address] [address] * COLONOSCOPY (01/11/2024 9:19 AM CDT) 01/11/2024 [...] an adequate candidate for conscious sedation. The [id number] was passed through the anus and advanced [...] 9:19 AM Procedure Code(s): --- Professional --- 01660, Colonoscopy, flexible; with removalof tumor(s), polyp(s), or other lesion(s) bysnare technique Diagnosis Code(s): --- Professional --- Z86.010, Personal history of colonicpolyps D12.4, Benign neoplasm of descending colon K57.30, Diverticulosis of large intestine without perforation or abscess withoutbleeding CPT copyright 2022 [employer]. All rights reserved. The codes documented in this report are preliminary and upon teacher physically impaired reviewmay be revised to meet current compliance requirements. Scope In: 10:30:05 AM Scope Withdrawal Time 0 hours 10 minutes 2 seconds Scope Out: 10:45:11 AM us Oskar Ying MD PROCEDURE ORD Final Res ult from Last 3 Months or Most Recently Relevant to Health Maintenance Insurance [facility] MEDICARE [place] ONLY Care Teams Siebel Developer Relationship Specialty Start Date End Date Love Juan PA [address] [place] [address] PCP - General Physician [employer] 07/13/21 Ottoniel Field MD 05/11/11
[2024-12-30] MEDS: KETOROLAC 30 MG/ML inj IM (21:51)
== END 2024-12-30 21:57 | disposition home or self-care (01) ==
PROVIDERS: Emergency Provider Student in an Organized Health Care Education/Training Program; PCP Physician Assistant Medical
DX: M25.461 Effusion, right knee (principal)
CPT/HCPCS: 73562; 96372; 99283; J1885

== ENCOUNTER 2025-04-25 11:05 | Outpatient (CLI) | payer MEDICARE, BC, SELFPAY | END 2025-04-25 11:06 | disposition home or self-care (01) | LOC: NFLDREF 04-30 13:14 | PROVIDERS: PCP Physician Assistant Medical; Referring Provider Physician Assistant Medical; Visit Provider Orthopaedic Surgery | DX: M25.061 Hemarthrosis, right knee (principal); Z96.651 Presence of right artificial knee joint | CPT/HCPCS: 82040; 82247; 84075; 84450; 84460; 85610; 85730 ==

== ENCOUNTER 2025-06-06 06:05 | Day surgery (SDC) | payer MEDICARE, BC, SELFPAY ==
[2025-06-06] VITALS (14 sets, daily range): BP systolic 115–178; BP diastolic 85–106; PULSE 48–60; RESP 12–16; TEMP 35.9–37; O2SAT 96–98; BMI 31.1
[2025-06-06] MEDS: SODIUM CHLORIDE 0.9 % (FLUSH) 10 ML SYRINGE IVF (06:40)
[2025-06-06] MEDS: LACTATED RINGERS 1000 ML 1,000 ML 100 ML IV (06:40)
[2025-06-06] MEDS: BUPIVACAINE 0.25% 30 ML INJECTION (08:30)
--- NOTE | 2025-06-06 09:04 | P.ANES_ITS ---
Anesthesia Charges Start Date/Time Anesthesia Start Date: 06/06/25 Anesthesia Start Time: 07:17 Stop Date/Time Anesthesia Stop Date: 06/06/25 Anesthesia Stop Time: 08:48 Summary Extremes of Age - Over 70 or under 1: DIRECTOR CALL Coding CPT Codes CPT Codes: ANESTH KNEE JOINT SURGERY - 81371 ([id number]) P3 - PATIENT W/SEVERE SYS DISEASE, QK - CRYSTAL ATTACHER 2-4 CNCRNT ANES PROC Additional Codes: Summary - Extremes of Age - Over 70 or under 1: DIRECTOR CALL ([id number])
--- NOTE | 2025-06-06 09:04 | W.ANESCHARGE ---
Anesthesia Charges Start Date/Time Anesthesia Start Date: 06/06/25 Anesthesia Start Time: 07:17 Stop Date/Time Anesthesia Stop Date: 06/06/25 Anesthesia Stop Time: 08:48 Summary Extremes of Age - Over 70 or under 1: BEEF PLUCK TRIMMER Coding CPT Codes CPT Codes: ANESTH KNEE JOINT SURGERY - 06443 ([id number]) P3 - PATIENT W/SEVERE SYS DISEASE, QK - MAGNESIUM MILL OPERATOR 2-4 CNCRNT ANES PROC Additional Codes: Summary - Extremes of Age - Over 70 or under 1: BEEF PLUCK TRIMMER ([id number])
--- NOTE | 2025-06-06 09:37 | PM.ORPRC ---
Procedure Note Date of procedure: 06/06/25 Procedure: PREOPERATIVE DIAGNOSIS: Right total knee arthroplasty recurrent hemarthrosis POSTOPERATIVE DIAGNOSIS: Right total knee arthroplasty recurrent hemarthrosis NAME OF OPERATION: Right total knee arthroplasty diagnostic arthroscopy, arthroscopic debridement of synovium and postoperative scar SURGEON: Remigio Calderon MD EQUAL [employer]PPORTUNITY DIRECTOR: FAUSTINO Galvan ANESTHESIA: Spinal ESTIMATED BLOOD LOSS: 0 mL COMPLICATIONS: None SPECIMENS: None DRAINS: None PREOPERATIVE ANTIBIOTICS: Ancef 2 gram INDICATIONS: The patient is a 75-year-old who underwent right total knee arthroplasty previously. He has experienced several, atraumatic episodes of heme arthrosis. The working diagnosis is scar in the knee, getting entrapped, likely within the patellofemoral joint. Operative intervention was recommended. The risks, benefits and expected outcomes were discussed in detail. These included but were not limited to: Infection, bleeding, injury to blood vessel or nerve, venous thromboembolism. All questions were answered to their satisfaction. PROCEDURE: Spinal anesthesia was administered. The patient was placed supine on the operating room table. The right lower extremity was prepped and draped in the usual sterile fashion. The limb was exsanguinated with the Oskar bandage. The pneumatic tourniquet was inflated to 300 mmHg. A standard anterolateral portal was established. The arthroscope was introduced. The working portal was established anteromedially. Diagnostic arthroscopy was performed with findings as follows: The patellar component is intact. There is some scarring surrounding the patellar component, both proximally and distally. The femoral component is normal, the tibial polyethylene is normal. There is hypertrophic synovitis within both gutters. This has a darby/brown appearance. It is accompanied by scarring as well. The scarring posterior to the patellar tendon was debrided with the radiofrequency probe and shaver. A superolateral portal was placed. Then we aggressively debrided around the patellar component and posterior to the quads tendon with the shaver and radiofrequency probe. The scarring in the mediolateral gutters and the synovitis was aggressively debrided with the shaver and radiofrequency probe. The tourniquet was released and bleeding was controlled with the radiofrequency probe. Arthroscopic instruments were removed, the portal sites were closed with a 3-0 nylon. Portals were injected with 0.25% Marcaine without epinephrine. A dry dressing was applied, the tourniquet was released. Sponge and needle counts were correct x 2. The patient tolerated the procedure well. There were no apparent complications. They were carefully transferred to the hospital bed and taken to the postanesthesia care unit in satisfactory condition. PLAN: The patient will be discharged to home. They may weightbear as tolerates. Range of motion will be unrestricted. They will follow up in the office in 2 weeks for a wound check and suture removal.
== END 2025-06-06 10:28 | disposition home or self-care (01) ==
LOC: OR 06:06
PROVIDERS: PCP Physician Assistant Medical; Visit Provider Orthopaedic Surgery
PROC: (CPT 29870; principal; 2025-06-06 07:15)
DX: M25.061 Hemarthrosis, right knee (principal); Z96.651 Presence of right artificial knee joint; M65.861 Other synovitis and tenosynovitis, right lower leg
CPT/HCPCS: 29877; 01400; 99100; J0665; J0690; J2405; J2704; J3010; J7120